=== PATIENT | male | born 1970 | race African-American/Black ===

== ENCOUNTER 2016-06-06 16:56 | Inpatient (IN) | payer MEDICARE, MEDICAID ==
[~2016-06-06] VITALS: Ht 182.9 cm; Wt 201.9 kg
[~2016-06-06 16:56] MED LIST: CARV25TA47 PO; CORLANOR PO; DOCU-138 PO; ENTRESTO PO; FURO40TA5 PO; HYDR-4134 PO; OMEP20CA10 PO; POTA20TA82 PO
[2016-06-06] MEDS ORDERED: ONDANSETRON 4MG ODT PO STA (18:38)
[2016-06-06] MEDS ORDERED: MORPHINE SULFATE 4 MG/ML CPJ (NOT FOR IM USE) IV STA (18:38)
[2016-06-06 19:09] LABS: DIFFERENTIAL COMMENT 0; EOSINOPHILS % 3.9 % (0.0-5.0); HEMATOCRIT. 36.7 % (42.0-52.0); HEMOGLOBIN. 11.4 g/dL (14.0-18.0); LYMPHOCYTES % 37.3 % (20.0-50.0); MEAN CORPUSCULAR HGB CONC 31.2 g/dL (31.0-37.0); MEAN CORPUSCULAR VOLUME 76.8 fL (80.0-94.0); MEAN PLATELET VOLUME 8.8 fl (7.4-10.4); MONOCYTES % 11.2 % (2.0-8.0); NEUTROPHILS % 46.6 % (40.0-76.0); PLATELET 143 x1000/uL (130-400); RED BLOOD CELL COUNT 4.78 mill/uL (4.7-6.1); RED CELL DISTRIBUTION WIDTH 18.5 % (11.6-14.6); WHITE BLOOD COUNT 4.9 x1000/uL (4.5-11.0)
[2016-06-06 19:14] LABS: PROTHROMBIN TIME 10.9 sec
[2016-06-06 19:24] LABS: ALANINE AMINOTRANSFERASE 19 IU/L (13-61); ALBUMIN 3.5 g/dL (3.4-5.0); ANION GAP 12; CALCIUM 8.8 mg/dL (8.5-10.1); CARBON DIOXIDE 29 mEq/L (21-32); CHLORIDE 105 mEq/L (98-107); INDEX HEMOLYSI 1 (1-3); INDEX ICTERIC 1 (1-4); INDEX LIPEMIC 1 (1-3); LIPASE 77 IU/L (73-393); NT PRO B-TYPE NATRIURETIC PEP 913 pg/mL (5-125); TROPONIN I 0.02 ng/mL (0.00-0.04); UREA NITROGEN BLOOD 16 mg/dL (7-21); eGFR > 60 mL/min (>60)
[2016-06-06 20:20] LABS: CLARITY URINE CLEAR (CLEAR); COLOR URINE YELLOW (YELLOW); GLUCOSE URINE NEGATIVE (NEGATIVE); KETONES URINE NEGATIVE (NEGATIVE); LEUKOCYTE ESTERASE URINE NEGATIVE (NEGATIVE); NITRITE URINE NEGATIVE (NEGATIVE); OCCULT BLOOD URINE NEGATIVE (NEGATIVE); PROTEIN URINE 2+ (NEGATIVE); SPECIFIC GRAVITY URINE 1.025 (1.005-1.030)
[2016-06-06] MEDS ORDERED: FUROSEMIDE 40MG/4ML VIAL IVP ONE (20:45)
[2016-06-06] MEDS ORDERED: ASPIRIN 81MG TABLET PO ONE (20:45)
[2016-06-06 20:55] LABS: BACTERIA URINE 1+; RBC URINE 0-2 /hpf (0-2); SQUAMOUS EPITHELIAL CELL URINE FEW /lpf (RARE/1+); WBC URINE 0-2 /hpf (0-2)
[2016-06-06] MEDS ORDERED: IPRATROPIUM/ALBUTEROL 0.5-3(2.5)MG/3ML NEB INH PRN (21:45)
[2016-06-06] MEDS ORDERED: KETOROLAC 30MG/ML VIAL IV ONE (21:45)
[2016-06-06] MEDS ORDERED: ONDANSETRON HCL 4MG/2ML VIAL IV PRN (21:45)
[2016-06-06] MEDS ORDERED: MAGNESIUM/ALUMINUM HYDROXIDE/SIMETHICONE 30ML UDC PO PRN (21:45)
[2016-06-06] MEDS ORDERED: ENOXAPARIN 40MG/0.4ML SYR SUBCUT SCH (21:45)
[2016-06-06] MEDS ORDERED: CLONIDINE 0.1MG TABLET PO PRN (21:45)
[2016-06-06] MEDS ORDERED: ZOLPIDEM TARTRATE 5MG TABLET PO PRN (22:00)
[2016-06-06 22:52] VITALS: BP 183/99
[2016-06-06] MEDS: MORPHINE SULFATE 2 MG/ML CPJ (NOT FOR IM USE) IV PRN (23:32)
[2016-06-06] MEDS ORDERED: DOCUSATE SODIUM 100MG CAPSULE PO PRN (23:45)
[2016-06-06 23:48] VITALS: BP 183/99
[2016-06-07] VITALS: BP 161/90
[2016-06-07 04:00] VITALS: BP 163/96
[2016-06-07] MEDS: MORPHINE SULFATE 2 MG/ML CPJ (NOT FOR IM USE) IV PRN ×5 (04:12→20:50)
[2016-06-07 06:02] LABS: BASOPHILS % 0.6 % (0.0-2.0); DIFFERENTIAL COMMENT 0; EOSINOPHILS % 4.2 % (0.0-5.0); HEMOGLOBIN. 11.3 g/dL (14.0-18.0); LYMPHOCYTES % 46.4 % (20.0-50.0); MEAN CORPUSCULAR HGB CONC 31.4 g/dL (31.0-37.0); MEAN CORPUSCULAR VOLUME 76.5 fL (80.0-94.0); MEAN PLATELET VOLUME 9.1 fl (7.4-10.4); MONOCYTES % 13.6 % (2.0-8.0); NEUTROPHILS % 35.2 % (40.0-76.0); PLATELET 143 x1000/uL (130-400); RED CELL DISTRIBUTION WIDTH 19.1 % (11.6-14.6); WHITE BLOOD COUNT 5.4 x1000/uL (4.5-11.0)
[2016-06-07 06:56] LABS: ANION GAP 12; CALCIUM 8.4 mg/dL (8.5-10.1); CARBON DIOXIDE 29 mEq/L (21-32); CHLORIDE 104 mEq/L (98-107); HDL CHOLESTEROL 41 mg/dL (40-59); INDEX HEMOLYSI 1 (1-3); INDEX ICTERIC 1 (1-4); INDEX LIPEMIC 1 (1-3); MAGNESIUM 1.9 mg/dL (1.8-2.4); TRIGLYCERIDE 88 mg/dL (0-150); UREA NITROGEN BLOOD 18 mg/dL (7-21); eGFR > 60 mL/min (>60)
[2016-06-07 06:58] LABS: LDL CHOLESTEROL 83 mg/dL (5-100)
[2016-06-07 08:00] VITALS: BP 160/105
[2016-06-07] MEDS: HYDRALAZINE HCL 25MG TABLET PO SCH ×2 (08:08→20:47)
[2016-06-07] MEDS: POTASSIUM CHLORIDE 20MEQ TABLET SR PO SCH ×2 (08:09→16:39)
[2016-06-07] MEDS: CARVEDILOL 25MG TABLET PO SCH ×2 (08:09→20:47)
[2016-06-07] MEDS: PANTOPRAZOLE SODIUM 40 MG/VIAL IV SCH (08:10)
[2016-06-07] MEDS: ENOXAPARIN 40MG/0.4ML SYR SUBCUT SCH ×2 (08:10→20:48)
[2016-06-07] MEDS: ENTRESTO PO SCH ×2 (08:11→16:40)
[2016-06-07] MEDS: CORLANOR 5 MG PO SCH ×2 (08:11→16:40)
[2016-06-07 12:00] VITALS: BP 134/86
[2016-06-07 16:00] VITALS: BP 122/84
[2016-06-07] MEDS: SIMETHICONE 80MG TABLET CHEW PO SCH ×2 (16:39→20:47)
[2016-06-07 20:00] VITALS: BP 157/89
[2016-06-08] VITALS: BP 165/98
[2016-06-08] MEDS: MORPHINE SULFATE 2 MG/ML CPJ (NOT FOR IM USE) IV PRN ×4 (01:21→13:36)
[2016-06-08 04:00] VITALS: BP 150/90
[2016-06-08 05:50] LABS: ANION GAP 12; CALCIUM 8.2 mg/dL (8.5-10.1); CARBON DIOXIDE 27 mEq/L (21-32); CHLORIDE 107 mEq/L (98-107); INDEX HEMOLYSI 3 (1-3); INDEX ICTERIC 1 (1-4); INDEX LIPEMIC 1 (1-3); UREA NITROGEN BLOOD 19 mg/dL (7-21); eGFR > 60 mL/min (>60)
[2016-06-08 05:51] LABS: BASOPHILS % 0.7 % (0.0-2.0); DIFFERENTIAL COMMENT 0; EOSINOPHILS % 5.3 % (0.0-5.0); HEMATOCRIT. 37.7 % (42.0-52.0); HEMOGLOBIN. 11.6 g/dL (14.0-18.0); MEAN CORPUSCULAR HEMOGLOBIN 24.2 pg (28.0-32.0); MEAN CORPUSCULAR HGB CONC 30.8 g/dL (31.0-37.0); MEAN CORPUSCULAR VOLUME 78.5 fL (80.0-94.0); MEAN PLATELET VOLUME 9.3 fl (7.4-10.4); MONOCYTES % 11.1 % (2.0-8.0); NEUTROPHILS % 38.9 % (40.0-76.0); PLATELET 125 x1000/uL (130-400); RED CELL DISTRIBUTION WIDTH 18.5 % (11.6-14.6); WHITE BLOOD COUNT 4.9 x1000/uL (4.5-11.0)
[2016-06-08] MEDS: SIMETHICONE 80MG TABLET CHEW PO SCH ×4 (07:08→21:38)
[2016-06-08 08:00] VITALS: BP 158/98
[2016-06-08] MEDS ORDERED: FUROSEMIDE 40MG/4ML VIAL IV SCH (09:00)
[2016-06-08] MEDS: CORLANOR 5 MG PO SCH ×2 (09:36→17:23)
[2016-06-08] MEDS: ENTRESTO PO SCH ×2 (09:37→17:24)
[2016-06-08] MEDS: PANTOPRAZOLE SODIUM 40 MG/VIAL IV SCH (09:37)
[2016-06-08] MEDS: ENOXAPARIN 40MG/0.4ML SYR SUBCUT SCH ×2 (09:37→20:38)
[2016-06-08] MEDS: HYDRALAZINE HCL 25MG TABLET PO SCH (09:38)
[2016-06-08] MEDS: POTASSIUM CHLORIDE 20MEQ TABLET SR PO SCH ×2 (09:39→17:23)
[2016-06-08] MEDS: CARVEDILOL 25MG TABLET PO SCH ×2 (09:39→20:37)
[2016-06-08] MEDS: DOCUSATE SODIUM 250MG CAPSULE PO SCH ×2 (09:56→17:23)
[2016-06-08 12:00] VITALS: BP 124/78
[2016-06-08] MEDS: AMLODIPINE 5MG TABLET PO SCH ×2 (13:35→20:36)
[2016-06-08 16:00] VITALS: BP 164/86
[2016-06-08] MEDS: FUROSEMIDE 40MG/4ML VIAL IV SCH (17:23)
[2016-06-08 20:00] VITALS: BP 150/87
[2016-06-08] MEDS: HYDRALAZINE HCL 50MG TABLET PO SCH (20:35)
[2016-06-08] MEDS: MORPHINE SULFATE 4 MG/ML CPJ (NOT FOR IM USE) IV PRN (21:38)
[2016-06-09] VITALS: BP 135/81
[2016-06-09] MEDS: MORPHINE SULFATE 4 MG/ML CPJ (NOT FOR IM USE) IV PRN ×3 (01:47→09:52)
[2016-06-09 04:00] VITALS: BP 151/87
[2016-06-09] MEDS ORDERED: PANTOPRAZOLE 40MG DR TABLET PO SCH (06:45)
[2016-06-09] MEDS: FUROSEMIDE 40MG/4ML VIAL IV SCH (06:47)
[2016-06-09] MEDS: SIMETHICONE 80MG TABLET CHEW PO SCH ×2 (06:48→12:59)
[2016-06-09 08:00] VITALS: BP 115/68
[2016-06-09 09:22] LABS: BASOPHILS % 0.9 % (0.0-2.0); DIFFERENTIAL COMMENT 0; EOSINOPHILS % 8.2 % (0.0-5.0); HEMATOCRIT. 39.8 % (42.0-52.0); HEMOGLOBIN. 12.3 g/dL (14.0-18.0); LYMPHOCYTES % 34.2 % (20.0-50.0); MEAN CORPUSCULAR HEMOGLOBIN 24.1 pg (28.0-32.0); MEAN CORPUSCULAR VOLUME 77.6 fL (80.0-94.0); MEAN PLATELET VOLUME 8.6 fl (7.4-10.4); MONOCYTES % 9.3 % (2.0-8.0); NEUTROPHILS % 47.4 % (40.0-76.0); PLATELET 144 x1000/uL (130-400); RED BLOOD CELL COUNT 5.13 mill/uL (4.7-6.1); RED CELL DISTRIBUTION WIDTH 19.2 % (11.6-14.6); WHITE BLOOD COUNT 4.7 x1000/uL (4.5-11.0)
[2016-06-09] MEDS: AMLODIPINE 5MG TABLET PO SCH (10:00)
[2016-06-09 10:01] LABS: ANION GAP 11; CALCIUM 8.7 mg/dL (8.5-10.1); CARBON DIOXIDE 30 mEq/L (21-32); CHLORIDE 103 mEq/L (98-107); INDEX HEMOLYSI 1 (1-3); INDEX ICTERIC 1 (1-4); INDEX LIPEMIC 1 (1-3); MAGNESIUM 1.8 mg/dL (1.8-2.4); UREA NITROGEN BLOOD 19 mg/dL (7-21); eGFR > 60 mL/min (>60)
[2016-06-09] MEDS: DOCUSATE SODIUM 250MG CAPSULE PO SCH (10:12)
[2016-06-09] MEDS: POTASSIUM CHLORIDE 20MEQ TABLET SR PO SCH (10:13)
[2016-06-09] MEDS: HYDRALAZINE HCL 50MG TABLET PO SCH (10:13)
[2016-06-09] MEDS: CARVEDILOL 25MG TABLET PO SCH (10:14)
[2016-06-09] MEDS: ENOXAPARIN 40MG/0.4ML SYR SUBCUT SCH (10:16)
[2016-06-09] MEDS: CORLANOR 5 MG PO SCH (10:17)
[2016-06-09] MEDS: ENTRESTO PO SCH (10:17)
[2016-06-09 12:00] VITALS: BP 152/89
[2016-06-09 15:13] VITALS: BP 152/89
== END 2016-06-09 15:45 | disposition home or self-care (01) | DRG 291 ==
LOC: ER 18:58 → 5WST 20:43
PROVIDERS: ADMIT Family Medicine Adult Medicine; ATTEND Family Medicine Adult Medicine
DX: I11.0 Hypertensive heart disease with heart failure (principal); J96.00 Acute respiratory failure, unspecified whether with hypoxia or hypercapnia; Z68.44 Body mass index [BMI] 60.0-69.9, adult; I50.23 Acute on chronic systolic (congestive) heart failure; I42.0 Dilated cardiomyopathy; D50.9 Iron deficiency anemia, unspecified; E66.9 Obesity, unspecified; G47.33 Obstructive sleep apnea (adult) (pediatric); K21.9 Gastro-esophageal reflux disease without esophagitis; K25.9 Gastric ulcer, unspecified as acute or chronic, without hemorrhage or perforation; K28.9 Gastrojejunal ulcer, unspecified as acute or chronic, without hemorrhage or perforation; K43.9 Ventral hernia without obstruction or gangrene; Z96.659 Presence of unspecified artificial knee joint; M48.02 Spinal stenosis, cervical region; K44.9 Diaphragmatic hernia without obstruction or gangrene; K57.30 Diverticulosis of large intestine without perforation or abscess without bleeding; K80.20 Calculus of gallbladder without cholecystitis without obstruction; Z82.49 Family history of ischemic heart disease and other diseases of the circulatory system; Z87.11 Personal history of peptic ulcer disease; Z95.810 Presence of automatic (implantable) cardiac defibrillator; Z98.84 Bariatric surgery status; Z91.013 Allergy to seafood; Z91.018 Allergy to other foods; Z88.0 Allergy status to penicillin; Z98.890 Other specified postprocedural states; Z88.8 Allergy status to other drugs, medicaments and biological substances
CPT/HCPCS: 36415; 71010; 74176; 80048; 80053; 80061; 81001; 83690; 83735; 83880; 84484; 85025; 85610; 93005; 96374; 99285; C9113; J1650; J1885; J1940; J2270; Q0162

== ENCOUNTER 2016-09-25 14:05 | Inpatient (IN) | payer MEDICARE, MEDICAID ==
[~2016-09-25] VITALS: Ht 188 cm; Wt 205.0 kg
[2016-09-25] MEDS ORDERED: HYDROCODONE/ACETAMINOPHEN 5/325MG TABLET PO PRN (15:30)
[2016-09-25] MEDS ORDERED: ACETAMINOPHEN 325MG TABLET PO PRN (15:30)
[2016-09-25] MEDS ORDERED: MORPHINE SULFATE 2 MG/ML CPJ (NOT FOR IM USE) IV PRN (15:30)
[2016-09-25] MEDS ORDERED: MAGNESIUM/ALUMINUM HYDROXIDE/SIMETHICONE 30ML UDC PO PRN (15:30)
[2016-09-25] MEDS ORDERED: DOCUSATE SODIUM 100MG CAPSULE PO PRN ×2 (15:30→21:45)
[2016-09-25] MEDS ORDERED: IPRATROPIUM/ALBUTEROL 0.5-3(2.5)MG/3ML NEB INH PRN (15:30)
[2016-09-25] MEDS ORDERED: ONDANSETRON HCL 4MG/2ML VIAL IV PRN (15:30)
[2016-09-25 17:17] LABS: CHLORIDE 108 mEq/L (98-107)
[2016-09-25 17:20] LABS: BASOPHILS % 0.6 % (0.0-2.0); EOSINOPHILS % 0.9 % (0.0-5.0); HEMATOCRIT. 35.2 % (42.0-52.0); HEMOGLOBIN. 11.1 g/dL (14.0-18.0); LYMPHOCYTES % 27.6 % (20.0-50.0); MEAN CORPUSCULAR VOLUME 75.9 fL (80.0-94.0); MEAN PLATELET VOLUME 9.2 fl (7.4-10.4); MONOCYTES % 10.3 % (2.0-8.0); NEUTROPHILS % 60.6 % (40.0-76.0); PLATELET 164 x1000/uL (130-400); RED BLOOD CELL COUNT 4.64 mill/uL (4.7-6.1); RED CELL DISTRIBUTION WIDTH 17.2 % (11.6-14.6)
[2016-09-25 17:23] LABS: CARBON DIOXIDE 27 mEq/L (21-32)
[2016-09-25 17:25] LABS: INR 1.1; PROTHROMBIN TIME 11.3 sec
[2016-09-25] MEDS: FUROSEMIDE 40MG/4ML VIAL IV SCH (17:33)
[2016-09-25] MEDS ORDERED: MORPHINE SULFATE 4 MG/ML CPJ (NOT FOR IM USE) IV PRN (17:39)
[2016-09-25] MEDS: MORPHINE SULFATE 4 MG/ML CPJ (NOT FOR IM USE) IV PRN ×2 (19:21→22:36)
[2016-09-25] MEDS ORDERED: ZOLPIDEM TARTRATE 5MG TABLET PO PRN (21:00)
[2016-09-25] MEDS: HYDRALAZINE HCL 25MG TABLET PO SCH (22:40)
[2016-09-25] MEDS: CARVEDILOL 25MG TABLET PO SCH (22:41)
[2016-09-25] MEDS: ENOXAPARIN 40MG/0.4ML SYR SUBCUT SCH (22:41)
[2016-09-26] MEDS: MORPHINE SULFATE 4 MG/ML CPJ (NOT FOR IM USE) IV PRN ×6 (01:58→20:48)
[2016-09-26] MEDS: OMEPRAZOLE 20MG CAPSULE EXTENDED RELEASE PO SCH (06:07)
[2016-09-26 06:14] LABS: BASOPHILS % 0.6 % (0.0-2.0); EOSINOPHILS % 1.6 % (0.0-5.0); HEMATOCRIT. 36.1 % (42.0-52.0); HEMOGLOBIN. 11.4 g/dL (14.0-18.0); LYMPHOCYTES % 40.7 % (20.0-50.0); MEAN CORPUSCULAR HEMOGLOBIN 24.1 pg (28.0-32.0); MEAN CORPUSCULAR VOLUME 76.4 fL (80.0-94.0); MONOCYTES % 11.4 % (2.0-8.0); NEUTROPHILS % 45.7 % (40.0-76.0); RED BLOOD CELL COUNT 4.73 mill/uL (4.7-6.1); RED CELL DISTRIBUTION WIDTH 17.7 % (11.6-14.6)
[2016-09-26 07:52] LABS: CARBON DIOXIDE 28 mEq/L (21-32); CHLORIDE 105 mEq/L (98-107)
[2016-09-26] MEDS: POTASSIUM CHLORIDE 20MEQ TABLET SR PO SCH ×2 (09:45→17:34)
[2016-09-26] MEDS: CARVEDILOL 25MG TABLET PO SCH ×2 (09:46→20:46)
[2016-09-26] MEDS: FUROSEMIDE 40MG/4ML VIAL IV SCH ×2 (09:46→17:34)
[2016-09-26] MEDS: HYDRALAZINE HCL 25MG TABLET PO SCH ×3 (09:46→20:47)
[2016-09-26] MEDS: ENOXAPARIN 40MG/0.4ML SYR SUBCUT SCH ×2 (09:47→20:47)
[2016-09-26 13:24] LABS: PLATELET 131 x1000/uL (130-400)
[2016-09-27] MEDS: MORPHINE SULFATE 4 MG/ML CPJ (NOT FOR IM USE) IV PRN ×7 (00:14→21:14)
[2016-09-27] MEDS: OMEPRAZOLE 20MG CAPSULE EXTENDED RELEASE PO SCH (06:28)
[2016-09-27] MEDS: HYDRALAZINE HCL 25MG TABLET PO SCH (06:28)
[2016-09-27 08:05] LABS: CARBON DIOXIDE 33 mEq/L (21-32); CHLORIDE 104 mEq/L (98-107)
[2016-09-27 08:11] LABS: BASOPHILS % 0.6 % (0.0-2.0); EOSINOPHILS % 2.2 % (0.0-5.0); HEMATOCRIT. 36.4 % (42.0-52.0); HEMOGLOBIN. 11.4 g/dL (14.0-18.0); LYMPHOCYTES % 37.8 % (20.0-50.0); MEAN CORPUSCULAR HEMOGLOBIN 24.1 pg (28.0-32.0); MEAN CORPUSCULAR VOLUME 76.9 fL (80.0-94.0); MEAN PLATELET VOLUME 9.1 fl (7.4-10.4); MONOCYTES % 11.2 % (2.0-8.0); NEUTROPHILS % 48.2 % (40.0-76.0); PLATELET 79 x1000/uL (130-400); RED BLOOD CELL COUNT 4.73 mill/uL (4.7-6.1); RED CELL DISTRIBUTION WIDTH 17.5 % (11.6-14.6)
[2016-09-27] MEDS: CARVEDILOL 25MG TABLET PO SCH ×2 (09:33→21:06)
[2016-09-27] MEDS: FUROSEMIDE 40MG/4ML VIAL IV SCH ×2 (09:33→17:41)
[2016-09-27] MEDS: POTASSIUM CHLORIDE 20MEQ TABLET SR PO SCH ×2 (09:34→17:41)
[2016-09-27] MEDS: ENOXAPARIN 40MG/0.4ML SYR SUBCUT SCH ×2 (09:40→20:38)
[2016-09-27] MEDS: ENTRESTO 24MG/26MG PO SCH ×2 (11:34→21:07)
[2016-09-27] MEDS: CORLANOR 5 MG PO SCH ×2 (11:34→21:07)
[2016-09-27] MEDS: HYDRALAZINE HCL 50MG TABLET PO SCH ×2 (14:18→21:06)
[2016-09-27] MEDS: IPRATROPIUM/ALBUTEROL 0.5-3(2.5)MG/3ML NEB HHN SCH (21:37)
[2016-09-28] MEDS: MORPHINE SULFATE 4 MG/ML CPJ (NOT FOR IM USE) IV PRN ×7 (00:17→21:10)
[2016-09-28] MEDS: IPRATROPIUM/ALBUTEROL 0.5-3(2.5)MG/3ML NEB HHN SCH ×4 (02:09→20:07)
[2016-09-28] MEDS: HYDRALAZINE HCL 50MG TABLET PO SCH ×3 (06:11→21:17)
[2016-09-28] MEDS: OMEPRAZOLE 20MG CAPSULE EXTENDED RELEASE PO SCH (06:11)
[2016-09-28 07:08] LABS: BASOPHILS % 0.7 % (0.0-2.0); EOSINOPHILS % 2.9 % (0.0-5.0); HEMOGLOBIN. 11.8 g/dL (14.0-18.0); LYMPHOCYTES % 36.4 % (20.0-50.0); MEAN CORPUSCULAR HEMOGLOBIN 24.3 pg (28.0-32.0); MEAN CORPUSCULAR VOLUME 76.2 fL (80.0-94.0); MONOCYTES % 14.2 % (2.0-8.0); NEUTROPHILS % 45.8 % (40.0-76.0); PLATELET 167 x1000/uL (130-400); RED BLOOD CELL COUNT 4.86 mill/uL (4.7-6.1); RED CELL DISTRIBUTION WIDTH 17.1 % (11.6-14.6)
[2016-09-28 07:32] LABS: CARBON DIOXIDE 30 mEq/L (21-32); CHLORIDE 104 mEq/L (98-107)
[2016-09-28] MEDS: POTASSIUM CHLORIDE 20MEQ TABLET SR PO SCH ×2 (08:28→17:29)
[2016-09-28] MEDS: FUROSEMIDE 40MG/4ML VIAL IV SCH ×2 (08:28→17:29)
[2016-09-28] MEDS: ENTRESTO 24MG/26MG PO SCH ×2 (08:29→21:18)
[2016-09-28] MEDS: CORLANOR 5 MG PO SCH ×2 (08:29→21:18)
[2016-09-28] MEDS: CARVEDILOL 25MG TABLET PO SCH ×2 (08:29→21:17)
[2016-09-28] MEDS: ENOXAPARIN 40MG/0.4ML SYR SUBCUT SCH ×2 (08:40→21:00)
[2016-09-29] MEDS: MORPHINE SULFATE 4 MG/ML CPJ (NOT FOR IM USE) IV PRN ×5 (01:19→15:31)
[2016-09-29] MEDS: IPRATROPIUM/ALBUTEROL 0.5-3(2.5)MG/3ML NEB HHN SCH ×3 (01:43→14:43)
[2016-09-29 04:39] LABS: CARBON DIOXIDE 31 mEq/L (21-32); CHLORIDE 102 mEq/L (98-107)
[2016-09-29 04:44] LABS: BASOPHILS % 0.6 % (0.0-2.0); EOSINOPHILS % 3.2 % (0.0-5.0); HEMATOCRIT. 37.8 % (42.0-52.0); LYMPHOCYTES % 36.7 % (20.0-50.0); MEAN CORPUSCULAR VOLUME 75.7 fL (80.0-94.0); MEAN PLATELET VOLUME 9.2 fl (7.4-10.4); MONOCYTES % 12.1 % (2.0-8.0); NEUTROPHILS % 47.4 % (40.0-76.0); PLATELET 149 x1000/uL (130-400); RED BLOOD CELL COUNT 4.99 mill/uL (4.7-6.1)
[2016-09-29] MEDS: HYDRALAZINE HCL 50MG TABLET PO SCH ×2 (05:50→15:26)
[2016-09-29] MEDS: OMEPRAZOLE 20MG CAPSULE EXTENDED RELEASE PO SCH (05:50)
[2016-09-29] MEDS: FUROSEMIDE 40MG/4ML VIAL IV SCH ×2 (08:53→17:00)
[2016-09-29] MEDS: CARVEDILOL 25MG TABLET PO SCH (08:54)
[2016-09-29] MEDS: POTASSIUM CHLORIDE 20MEQ TABLET SR PO SCH (08:54)
[2016-09-29] MEDS: ENTRESTO 24MG/26MG PO SCH (08:55)
[2016-09-29] MEDS: CORLANOR 5 MG PO SCH (08:55)
[2016-09-29] MEDS: ENOXAPARIN 40MG/0.4ML SYR SUBCUT SCH (09:00)
[2016-09-29] MEDS ORDERED: MAGNESIUM 1 G PREMIX 100 ML IV NR (12:00)
[2016-09-29 15:54] VITALS: BP 136/78
[2017-01-17] MEDS ORDERED: WARF10TA21 PO (18:05)
== END 2016-09-29 17:52 | disposition home or self-care (01) | DRG 292 ==
LOC: ER 15:00 → 5WST 15:05 → ER 16:10
PROVIDERS: ADMIT Specialist; ATTEND Specialist
PROC: 02HV33Z Insertion of Infusion Device into Superior Vena Cava, Percutaneous Approach (ICD-10-PCS; principal; 2016-09-26)
PROC: B548ZZA Ultrasonography of Superior Vena Cava, Guidance (ICD-10-PCS; 2016-09-26)
DX: I11.0 Hypertensive heart disease with heart failure (principal); Z68.43 Body mass index [BMI] 50.0-59.9, adult; I50.23 Acute on chronic systolic (congestive) heart failure; I42.0 Dilated cardiomyopathy; E66.9 Obesity, unspecified; G47.33 Obstructive sleep apnea (adult) (pediatric); Z96.659 Presence of unspecified artificial knee joint; Z82.49 Family history of ischemic heart disease and other diseases of the circulatory system; Z95.810 Presence of automatic (implantable) cardiac defibrillator; Z90.49 Acquired absence of other specified parts of digestive tract; Z88.8 Allergy status to other drugs, medicaments and biological substances; Z88.0 Allergy status to penicillin; Z91.013 Allergy to seafood; Z79.899 Other long term (current) drug therapy
CPT/HCPCS: 36415; 36569; 71010; 76937; 80048; 83735; 85025; 85610; 93005; 93970; 94640; 94664; 96372; 96374; 96375; 96376; 97162; 99285; C1725; J1650; J1940; J2270; J3475; J7050; J7620

== ENCOUNTER 2018-05-20 14:16 | Inpatient (IN) | payer MEDICARE, MEDICAID ==
[~2018-05-20] VITALS: Ht 190.5 cm; Wt 192.8 kg
[~2018-05-20 14:16] MED LIST changes: -CORLANOR PO; -ENTRESTO PO; +IVAB5TAB PO; +RIVA10TA PO; +SACU1TAB4 PO
[2018-05-20] MEDS ORDERED: NITROGLYCERIN 0.4MG TABLET SL SL ONE (14:45)
[2018-05-20] MEDS ORDERED: ASPIRIN 325MG EC TABLET PO ONE (14:45)
[2018-05-20] MEDS ORDERED: FUROSEMIDE 40MG/4ML VIAL IVP ONE (15:15)
[2018-05-20 15:17] LABS: CHLORIDE 109 mEq/L (98-107)
[2018-05-20 15:19] LABS: BASOPHILS % 1.1 % (0.0-2.0); HEMATOCRIT. 37.4 % (42.0-52.0); HEMOGLOBIN. 12.5 g/dL (14.0-18.0); LYMPHOCYTES % 34.7 % (20.0-50.0); MEAN CORPUSCULAR HEMOGLOBIN 28.1 pg (28.0-32.0); MEAN CORPUSCULAR VOLUME 84.1 fL (80.0-94.0); MEAN PLATELET VOLUME 8.6 fl (7.4-10.4); MONOCYTES % 11.6 % (2.0-8.0); NEUTROPHILS % 51.6 % (40.0-76.0); PLATELET 120 x1000/uL (130-400); RED BLOOD CELL COUNT 4.44 mill/uL (4.7-6.1); RED CELL DISTRIBUTION WIDTH 23.1 % (11.6-14.6)
[2018-05-20 15:32] LABS: INR 1.9; PARTIAL THROMBOPLASTIN TIME 36.2 sec (23.4-31.0); PROTHROMBIN TIME 18.5 sec (9.1-11.1)
[2018-05-20 16:11] LABS: PLATELET ESTIMATE DECREASED
[2018-05-20] MEDS ORDERED: MORPHINE SULFATE 4 MG/ML CPJ (NOT FOR IM USE) IV ONE (16:45)
[2018-05-20] MEDS ORDERED: MORPHINE SULFATE 4 MG/ML CPJ (NOT FOR IM USE) IV NR (21:00)
[2018-05-21] MEDS ORDERED: HYDROCODONE/ACETAMINOPHEN 10/325MG TABLET PO PRN
[2018-05-21] MEDS ORDERED: ACETAMINOPHEN 325MG TABLET PO PRN
[2018-05-21] MEDS ORDERED: DIPHENHYDRAMINE 50MG/ML VIAL IV PRN
[2018-05-21] MEDS ORDERED: LORAZEPAM 0.5MG TABLET PO PRN
[2018-05-21] MEDS ORDERED: MAGNESIUM/ALUMINUM HYDROXIDE/SIMETHICONE 30ML UDC PO PRN
[2018-05-21] MEDS ORDERED: IPRATROPIUM/ALBUTEROL 0.5-3(2.5)MG/3ML NEB INH PRN
[2018-05-21] MEDS ORDERED: HYDROCODONE/ACETAMINOPHEN 5/325MG TABLET PO PRN
[2018-05-21] MEDS ORDERED: GUAIFENESIN 200MG/10ML SUGAR FREE UDC PO PRN
[2018-05-21] MEDS ORDERED: HYDROCODONE/APAP 7.5/325MG 1 TAB TABLET PO PRN
[2018-05-21] MEDS ORDERED: DOCUSATE SODIUM 100MG CAPSULE PO PRN
[2018-05-21] MEDS ORDERED: ONDANSETRON HCL 4MG/2ML INJ IV PRN
[2018-05-21] MEDS ORDERED: CLONIDINE 0.1MG TABLET PO PRN
[2018-05-21] MEDS ORDERED: MORPHINE SULFATE 4 MG/ML CPJ (NOT FOR IM USE) IV SCH (02:30)
[2018-05-21] MEDS ORDERED: MORPHINE SULFATE 4 MG/ML CPJ (NOT FOR IM USE) IV PRN (02:30)
[2018-05-21] MEDS: MORPHINE SULFATE 4 MG/ML CPJ (NOT FOR IM USE) IV PRN ×4 (02:32→20:26)
[2018-05-21 04:14] LABS: BASOPHILS % 1.1 % (0.0-2.0); EOSINOPHILS % 1.5 % (0.0-5.0); HEMATOCRIT. 38.1 % (42.0-52.0); HEMOGLOBIN. 12.4 g/dL (14.0-18.0); LYMPHOCYTES % 48.6 % (20.0-50.0); MEAN CORPUSCULAR HEMOGLOBIN 27.6 pg (28.0-32.0); MEAN CORPUSCULAR VOLUME 84.8 fL (80.0-94.0); MEAN PLATELET VOLUME 8.8 fl (7.4-10.4); MONOCYTES % 10.1 % (2.0-8.0); NEUTROPHILS % 38.7 % (40.0-76.0); PLATELET 112 x1000/uL (130-400); RED CELL DISTRIBUTION WIDTH 23.2 % (11.6-14.6)
[2018-05-21 04:21] LABS: CHLORIDE 108 mEq/L (98-107)
[2018-05-21 04:28] LABS: PHOSPHORUS 3.7 mg/dL (2.5-4.9)
[2018-05-21 04:29] LABS: LDL CHOLESTEROL 63 mg/dL (5-100)
[2018-05-21 04:31] LABS: HDL CHOLESTEROL 38 mg/dL (40-59); T4 FREE 1.32 ng/dL (0.76-1.46)
[2018-05-21 04:45] VITALS: BP 161/81
[2018-05-21 05:00] VITALS: BP 161/81
[2018-05-21] MEDS ORDERED: WARF10TA21 PO (05:52)
[2018-05-21 07:14] LABS: CLARITY URINE CLEAR (CLEAR); COLOR URINE YELLOW (YELLOW); KETONES URINE NEGATIVE (NEGATIVE); LEUKOCYTE ESTERASE URINE NEGATIVE (NEGATIVE); NITRITE URINE NEGATIVE (NEGATIVE); OCCULT BLOOD URINE NEGATIVE (NEGATIVE); PROTEIN URINE NEGATIVE (NEGATIVE); SPECIFIC GRAVITY URINE 1.017 (1.005-1.030); UROBILINOGEN URINE 0.2 E.U./dL (0.2-1.0)
[2018-05-21 07:53] LABS: METHADONE URINE SCREEN NEGATIVE (NEGATIVE); OPIATES URINE SCREEN PRESUMTIVE POSITIVE (NEGATIVE)
[2018-05-21 07:54] LABS: *AMPHETAMINES SCREEN URINE NEGATIVE (NEGATIVE); *BARBITURATES SCREEN URINE NEGATIVE (NEGATIVE); *BENZODIAZEPINES SCREEN URINE NEGATIVE (NEGATIVE); *COCAINE SCREEN URINE NEGATIVE (NEGATIVE); CANNABINOID URINE SCREEN NEGATIVE (NEGATIVE); PHENCYCLIDINE URINE SCREEN NEGATIVE (NEGATIVE)
[2018-05-21 08:00] VITALS: BP 146/89
[2018-05-21 11:23] LABS: PROTHROMBIN TIME 20.1 sec (9.1-11.1)
[2018-05-21 12:00] VITALS: BP 150/70
[2018-05-21] MEDS ORDERED: SODIUM BICARBONATE 4% (2.4MEQ) 5ML VIAL IV ONE (14:00)
[2018-05-21] MEDS ORDERED: LIDOCAINE HCL 1% 20ML VIAL (Pyxis) INJ ONE (14:00)
[2018-05-21] MEDS: FUROSEMIDE 40MG/4ML VIAL IVP SCH ×2 (15:48→17:38)
[2018-05-21 16:00] VITALS: BP 132/82
[2018-05-21] MEDS ORDERED: WARFARIN SODIUM 10MG TABLET PO NR (18:00)
[2018-05-21] MEDS ORDERED: WARFARIN SODIUM 10MG TABLET PO SCH (18:00)
[2018-05-21 20:00] VITALS: BP 155/84
[2018-05-21] MEDS: CARVEDILOL 25MG TABLET PO SCH (20:35)
[2018-05-21] MEDS ORDERED: MAGNESIUM 1 G PREMIX 100 ML IV NR (21:30)
[2018-05-22] VITALS: BP 153/81
[2018-05-22] MEDS: MORPHINE SULFATE 4 MG/ML CPJ (NOT FOR IM USE) IV PRN ×5 (03:43→23:07)
[2018-05-22 04:00] VITALS: BP 122/78
[2018-05-22 07:29] LABS: INR 2.2; PROTHROMBIN TIME 22.3 sec (9.1-11.1)
[2018-05-22 07:45] LABS: BASOPHILS % 0.4 % (0.0-2.0); EOSINOPHILS % 1.5 % (0.0-5.0); HEMATOCRIT. 38.3 % (42.0-52.0); HEMOGLOBIN. 12.5 g/dL (14.0-18.0); LYMPHOCYTES % 39.2 % (20.0-50.0); MEAN CORPUSCULAR HEMOGLOBIN 27.7 pg (28.0-32.0); MEAN CORPUSCULAR VOLUME 84.8 fL (80.0-94.0); MEAN PLATELET VOLUME 8.9 fl (7.4-10.4); MONOCYTES % 11.7 % (2.0-8.0); NEUTROPHILS % 47.2 % (40.0-76.0); PLATELET 118 x1000/uL (130-400); RED BLOOD CELL COUNT 4.52 mill/uL (4.7-6.1); RED CELL DISTRIBUTION WIDTH 23.1 % (11.6-14.6)
[2018-05-22 08:00] VITALS: BP 154/93
[2018-05-22 08:00] LABS: CHLORIDE 107 mEq/L (98-107)
[2018-05-22] MEDS: FUROSEMIDE 40MG/4ML VIAL IVP SCH ×2 (09:04→18:26)
[2018-05-22] MEDS: CARVEDILOL 25MG TABLET PO SCH ×2 (09:06→20:30)
[2018-05-22 12:00] VITALS: BP 149/87
[2018-05-22] MEDS: ENTRESTO XX SCH ×2 (13:37→18:26)
[2018-05-22] MEDS: ENOXAPARIN 150MG/ML SYR SUBCUT SCH (13:38)
[2018-05-22 16:00] VITALS: BP 156/99
[2018-05-22] MEDS: BACITRACIN 15GM TUBE TOP SCH (16:35)
[2018-05-22] MEDS ORDERED: WARFARIN SODIUM 10MG TABLET PO NR (18:00)
[2018-05-22 20:00] VITALS: BP 150/83
[2018-05-23] VITALS: BP 139/92
[2018-05-23] MEDS: ENOXAPARIN 150MG/ML SYR SUBCUT SCH ×2 (00:54→13:28)
[2018-05-23 04:00] VITALS: BP 136/91
[2018-05-23] MEDS: MORPHINE SULFATE 4 MG/ML CPJ (NOT FOR IM USE) IV PRN ×5 (04:17→21:56)
[2018-05-23 08:00] VITALS: BP 142/89
[2018-05-23 09:04] LABS: BASOPHILS % 0.6 % (0.0-2.0); EOSINOPHILS % 1.7 % (0.0-5.0); HEMATOCRIT. 40.8 % (42.0-52.0); HEMOGLOBIN. 13.6 g/dL (14.0-18.0); LYMPHOCYTES % 46.8 % (20.0-50.0); MEAN CORPUSCULAR HEMOGLOBIN 28.2 pg (28.0-32.0); MEAN CORPUSCULAR VOLUME 84.5 fL (80.0-94.0); MEAN PLATELET VOLUME 8.5 fl (7.4-10.4); MONOCYTES % 11.2 % (2.0-8.0); NEUTROPHILS % 39.7 % (40.0-76.0); PLATELET 97 x1000/uL (130-400); RED BLOOD CELL COUNT 4.83 mill/uL (4.7-6.1); RED CELL DISTRIBUTION WIDTH 22.7 % (11.6-14.6)
[2018-05-23 09:10] LABS: INR 2.5; PROTHROMBIN TIME 24.5 sec (9.1-11.1)
[2018-05-23 09:12] LABS: CHLORIDE 103 mEq/L (98-107)
[2018-05-23] MEDS: CARVEDILOL 25MG TABLET PO SCH ×2 (09:14→21:56)
[2018-05-23] MEDS: FUROSEMIDE 40MG/4ML VIAL IVP SCH ×2 (09:14→17:45)
[2018-05-23] MEDS: ENTRESTO XX SCH ×2 (09:15→17:46)
[2018-05-23] MEDS: BACITRACIN 15GM TUBE TOP SCH (09:16)
[2018-05-23 12:00] VITALS: BP 143/82
[2018-05-23] MEDS ORDERED: MAGNESIUM 1 G PREMIX 100 ML IV SCH (14:00)
[2018-05-23 16:00] VITALS: BP 134/82
[2018-05-23] MEDS ORDERED: CARV25TA47 MT (16:13)
[2018-05-23] MEDS ORDERED: WARFARIN SODIUM 10MG TABLET PO NR (18:00)
[2018-05-23 20:00] VITALS: BP 136/88
[2018-05-24] MEDS: ENOXAPARIN 150MG/ML SYR SUBCUT SCH ×3 (00:46→23:17)
[2018-05-24 04:00] VITALS: BP 135/85
[2018-05-24] MEDS: MORPHINE SULFATE 4 MG/ML CPJ (NOT FOR IM USE) IV PRN ×4 (04:18→21:06)
[2018-05-24 06:48] LABS: BASOPHILS % 0.6 % (0.0-2.0); EOSINOPHILS % 2.2 % (0.0-5.0); HEMATOCRIT. 41.6 % (42.0-52.0); HEMOGLOBIN. 13.7 g/dL (14.0-18.0); LYMPHOCYTES % 41.8 % (20.0-50.0); MEAN CORPUSCULAR HEMOGLOBIN 27.8 pg (28.0-32.0); MEAN CORPUSCULAR VOLUME 84.6 fL (80.0-94.0); MEAN PLATELET VOLUME 8.8 fl (7.4-10.4); MONOCYTES % 12.9 % (2.0-8.0); NEUTROPHILS % 42.5 % (40.0-76.0); PLATELET 136 x1000/uL (130-400); RED BLOOD CELL COUNT 4.92 mill/uL (4.7-6.1); RED CELL DISTRIBUTION WIDTH 22.8 % (11.6-14.6)
[2018-05-24 06:50] LABS: INR 2.3; PROTHROMBIN TIME 22.6 sec (9.1-11.1)
[2018-05-24 07:06] LABS: CHLORIDE 104 mEq/L (98-107)
[2018-05-24 08:00] VITALS: BP 132/93
[2018-05-24] MEDS: MAGNESIUM OXIDE 400MG TABLET PO SCH (08:51)
[2018-05-24] MEDS: CARVEDILOL 25MG TABLET PO SCH ×2 (08:51→20:58)
[2018-05-24] MEDS: ENTRESTO XX SCH ×2 (08:52→18:01)
[2018-05-24] MEDS: FUROSEMIDE 40MG/4ML VIAL IVP SCH ×2 (08:52→17:59)
[2018-05-24] MEDS: BACITRACIN 15GM TUBE TOP SCH (08:52)
[2018-05-24 12:00] VITALS: BP 150/69
[2018-05-24 16:00] VITALS: BP 118/75
[2018-05-24] MEDS ORDERED: WARFARIN SODIUM 10MG TABLET PO SCH (18:00)
[2018-05-24] MEDS ORDERED: WARFARIN SODIUM 1MG TABLET PO NR (18:00)
[2018-05-24 20:00] VITALS: BP 127/82
[2018-05-24 23:05] VITALS: BP 129/70
[2018-05-25] MEDS: MORPHINE SULFATE 4 MG/ML CPJ (NOT FOR IM USE) IV PRN ×5 (01:33→20:40)
[2018-05-25 04:00] VITALS: BP 110/70
[2018-05-25 07:19] LABS: BASOPHILS % 0.4 % (0.0-2.0); EOSINOPHILS % 1.9 % (0.0-5.0); HEMATOCRIT. 40.4 % (42.0-52.0); HEMOGLOBIN. 13.3 g/dL (14.0-18.0); LYMPHOCYTES % 49.6 % (20.0-50.0); MEAN CORPUSCULAR VOLUME 84.9 fL (80.0-94.0); MEAN PLATELET VOLUME 8.7 fl (7.4-10.4); MONOCYTES % 13.3 % (2.0-8.0); NEUTROPHILS % 34.8 % (40.0-76.0); PLATELET 140 x1000/uL (130-400); RED BLOOD CELL COUNT 4.76 mill/uL (4.7-6.1); RED CELL DISTRIBUTION WIDTH 22.9 % (11.6-14.6)
[2018-05-25 07:25] LABS: INR 2.3
[2018-05-25 07:58] LABS: CHLORIDE 105 mEq/L (98-107)
[2018-05-25 08:00] VITALS: BP 136/93
[2018-05-25] MEDS: FUROSEMIDE 40MG/4ML VIAL IVP SCH ×2 (08:47→16:57)
[2018-05-25] MEDS: MAGNESIUM OXIDE 400MG TABLET PO SCH (08:47)
[2018-05-25] MEDS: ENTRESTO XX SCH ×2 (08:47→16:57)
[2018-05-25] MEDS: CARVEDILOL 25MG TABLET PO SCH ×2 (08:47→22:03)
[2018-05-25] MEDS: BACITRACIN 15GM TUBE TOP SCH (08:48)
[2018-05-25 12:00] VITALS: BP_SYST 113; BP_SYST 120; BP_DIAS 65; BP_DIAS 70
[2018-05-25] MEDS ORDERED: WARFARIN SODIUM 2.5MG TABLET PO NR (18:00)
[2018-05-25] MEDS ORDERED: WARFARIN SODIUM 10MG TABLET PO NR (18:00)
[2018-05-25 20:00] VITALS: BP 122/84
[2018-05-26] VITALS: BP 103/62
[2018-05-26] MEDS ORDERED: MORPHINE SULFATE 4 MG/ML CPJ (NOT FOR IM USE) IV PRN (03:30)
[2018-05-26 04:00] VITALS: BP 109/75
[2018-05-26 06:33] LABS: BASOPHILS % 0.6 % (0.0-2.0); EOSINOPHILS % 2.3 % (0.0-5.0); HEMATOCRIT. 40.2 % (42.0-52.0); HEMOGLOBIN. 13.5 g/dL (14.0-18.0); LYMPHOCYTES % 42.5 % (20.0-50.0); MEAN CORPUSCULAR HEMOGLOBIN 28.5 pg (28.0-32.0); MEAN CORPUSCULAR VOLUME 85.1 fL (80.0-94.0); MEAN PLATELET VOLUME 8.7 fl (7.4-10.4); NEUTROPHILS % 42.6 % (40.0-76.0); PLATELET 135 x1000/uL (130-400); RED BLOOD CELL COUNT 4.72 mill/uL (4.7-6.1); RED CELL DISTRIBUTION WIDTH 22.6 % (11.6-14.6)
[2018-05-26 06:43] LABS: INR 2.4; PROTHROMBIN TIME 23.9 sec (9.1-11.1)
[2018-05-26 07:24] LABS: CHLORIDE 104 mEq/L (98-107)
[2018-05-26 08:00] VITALS: BP 132/77
[2018-05-26] MEDS: MAGNESIUM OXIDE 400MG TABLET PO SCH (09:41)
[2018-05-26] MEDS: BACITRACIN 15GM TUBE TOP SCH (09:42)
[2018-05-26] MEDS: ENTRESTO XX SCH ×2 (09:42→17:43)
[2018-05-26] MEDS: CARVEDILOL 25MG TABLET PO SCH ×2 (09:42→19:47)
[2018-05-26] MEDS: FUROSEMIDE 40MG/4ML VIAL IVP SCH ×2 (09:42→17:44)
[2018-05-26] MEDS: MORPHINE SULFATE 4 MG/ML CPJ (NOT FOR IM USE) IV PRN ×3 (10:53→19:48)
[2018-05-26 12:00] VITALS: BP 156/75
[2018-05-26 16:00] VITALS: BP 111/63
[2018-05-26] MEDS ORDERED: WARFARIN SODIUM 7.5MG TABLET PO SCH (18:00)
[2018-05-26 20:00] VITALS: BP 135/81
[2018-05-27] VITALS: BP 118/86
[2018-05-27] MEDS: MORPHINE SULFATE 4 MG/ML CPJ (NOT FOR IM USE) IV PRN ×3 (00:08→10:21)
[2018-05-27 04:00] VITALS: BP 135/72
[2018-05-27 06:39] LABS: INR 2.6
[2018-05-27 06:54] LABS: BASOPHILS % 0.4 % (0.0-2.0); EOSINOPHILS % 1.8 % (0.0-5.0); HEMATOCRIT. 41.9 % (42.0-52.0); HEMOGLOBIN. 13.8 g/dL (14.0-18.0); LYMPHOCYTES % 44.8 % (20.0-50.0); MEAN CORPUSCULAR HEMOGLOBIN 28.1 pg (28.0-32.0); MEAN CORPUSCULAR VOLUME 85.5 fL (80.0-94.0); MEAN PLATELET VOLUME 9.1 fl (7.4-10.4); MONOCYTES % 12.2 % (2.0-8.0); NEUTROPHILS % 40.8 % (40.0-76.0); PLATELET 139 x1000/uL (130-400); RED CELL DISTRIBUTION WIDTH 22.5 % (11.6-14.6)
[2018-05-27 07:04] LABS: CHLORIDE 104 mEq/L (98-107)
[2018-05-27 08:00] VITALS: BP 126/72
[2018-05-27 08:14] LABS: PLATELET ESTIMATE NORMAL
[2018-05-27] MEDS: FUROSEMIDE 40MG/4ML VIAL IVP SCH (09:16)
[2018-05-27] MEDS: CARVEDILOL 25MG TABLET PO SCH (09:17)
[2018-05-27] MEDS: MAGNESIUM OXIDE 400MG TABLET PO SCH (09:17)
[2018-05-27] MEDS: ENTRESTO XX SCH (09:18)
[2018-05-27 12:00] VITALS: BP 135/70
[2018-05-27 13:49] VITALS: BP 126/72
[2018-05-27] MEDS ORDERED: WARFARIN SODIUM 7.5MG TABLET PO NR (18:00)
== END 2018-05-27 16:59 | disposition home or self-care (01) | DRG 292 ==
LOC: ER 14:16 → 7WST 15:32 → EDBEDREQ 15:44 → ENRESERV 05-21 02:41 → 5WST 05-23 05:28
PROVIDERS: ADMIT Family Medicine Adult Medicine; ATTEND Family Medicine Adult Medicine
PROC: 02HV33Z Insertion of Infusion Device into Superior Vena Cava, Percutaneous Approach (ICD-10-PCS; principal; 2018-05-21)
PROC: B548ZZA Ultrasonography of Superior Vena Cava, Guidance (ICD-10-PCS; 2018-05-21)
DX: I11.0 Hypertensive heart disease with heart failure (principal); Z68.43 Body mass index [BMI] 50.0-59.9, adult; R07.89 Other chest pain; I42.0 Dilated cardiomyopathy; D50.9 Iron deficiency anemia, unspecified; E03.9 Hypothyroidism, unspecified; E83.42 Hypomagnesemia; R79.1 Abnormal coagulation profile; I50.9 Heart failure, unspecified; B35.1 Tinea unguium; D69.6 Thrombocytopenia, unspecified; E66.01 Morbid (severe) obesity due to excess calories; L60.3 Nail dystrophy; M19.90 Unspecified osteoarthritis, unspecified site; M21.372 Foot drop, left foot; Z96.652 Presence of left artificial knee joint; R26.9 Unspecified abnormalities of gait and mobility; G89.29 Other chronic pain; M72.2 Plantar fascial fibromatosis; Z79.01 Long term (current) use of anticoagulants; Z86.711 Personal history of pulmonary embolism; Z86.718 Personal history of other venous thrombosis and embolism; Z95.2 Presence of prosthetic heart valve; Z95.810 Presence of automatic (implantable) cardiac defibrillator; Z95.828 Presence of other vascular implants and grafts; Z98.84 Bariatric surgery status; Z88.5 Allergy status to narcotic agent; Z88.0 Allergy status to penicillin; Z91.013 Allergy to seafood; Z88.8 Allergy status to other drugs, medicaments and biological substances; Z91.018 Allergy to other foods; Z79.899 Other long term (current) drug therapy
CPT/HCPCS: 36415; 36569; 71045; 73630; 76937; 80048; 80061; 80305; 83735; 83880; 84100; 84439; 84443; 84481; 84484; 93005; 93306; 93970; 96374; 96375; 97162; 97164; 97165; 99285; C1725; J1650; J1940; J2270; J3475; J3490; J7040; J7050

== ENCOUNTER 2018-05-31 19:33 | Inpatient (IN) | payer MEDICARE, MEDICAID ==
[~2018-05-31] VITALS: Ht 190.5 cm; Wt 187.8 kg
[~2018-05-31 19:33] MED LIST changes: -HYDR-4134 PO; -RIVA10TA PO; +WARF10TA21 PO
[2018-05-31 21:14] LABS: BASOPHILS % 0.7 % (0.0-2.0); CHLORIDE 109 mEq/L (98-107); EOSINOPHILS % 1.3 % (0.0-5.0); HEMOGLOBIN. 13.6 g/dL (14.0-18.0); LYMPHOCYTES % 41.7 % (20.0-50.0); MEAN CORPUSCULAR HEMOGLOBIN 28.2 pg (28.0-32.0); MEAN CORPUSCULAR VOLUME 84.7 fL (80.0-94.0); MEAN PLATELET VOLUME 9.3 fl (7.4-10.4); MONOCYTES % 9.7 % (2.0-8.0); NEUTROPHILS % 46.6 % (40.0-76.0); PLATELET 156 x1000/uL (130-400); RED BLOOD CELL COUNT 4.84 mill/uL (4.7-6.1); RED CELL DISTRIBUTION WIDTH 21.5 % (11.6-14.6)
[2018-05-31] MEDS ORDERED: MORPHINE SULFATE 4 MG/ML CPJ (NOT FOR IM USE) IV ONE (21:45)
[2018-05-31] MEDS ORDERED: ASPIRIN 325MG EC TABLET PO ONE (22:30)
[2018-05-31] MEDS ORDERED: IPRATROPIUM/ALBUTEROL 0.5-3(2.5)MG/3ML NEB INH PRN (23:00)
[2018-05-31] MEDS ORDERED: LORAZEPAM 0.5MG TABLET PO PRN (23:00)
[2018-05-31] MEDS ORDERED: DIPHENHYDRAMINE 50MG/ML VIAL IV PRN (23:00)
[2018-05-31] MEDS ORDERED: MAGNESIUM/ALUMINUM HYDROXIDE/SIMETHICONE 30ML UDC PO PRN (23:00)
[2018-05-31] MEDS ORDERED: ONDANSETRON HCL 4MG/2ML INJ IV PRN (23:00)
[2018-05-31] MEDS ORDERED: HYDROCODONE/ACETAMINOPHEN 5/325MG TABLET PO PRN (23:00)
[2018-05-31] MEDS ORDERED: ENOXAPARIN 40MG/0.4ML SYR SUBCUT SCH (23:00)
[2018-05-31] MEDS ORDERED: DOCUSATE SODIUM 100MG CAPSULE PO PRN (23:00)
[2018-05-31] MEDS ORDERED: ACETAMINOPHEN 325MG TABLET PO PRN (23:00)
[2018-05-31] MEDS ORDERED: GUAIFENESIN 200MG/10ML SUGAR FREE UDC PO PRN (23:00)
[2018-06-01 00:15] LABS: PARTIAL THROMBOPLASTIN TIME 54.8 sec (23.4-31.0); PROTHROMBIN TIME 55.5 sec (9.1-11.1)
[2018-06-01 00:56] LABS: INR 5.7
[2018-06-01] MEDS: MORPHINE SULFATE 4 MG/ML CPJ (NOT FOR IM USE) IV PRN ×5 (01:37→21:29)
[2018-06-01 05:18] LABS: BASOPHILS % 0.9 % (0.0-2.0); CHLORIDE 111 mEq/L (98-107); HEMATOCRIT. 40.2 % (42.0-52.0); HEMOGLOBIN. 13.4 g/dL (14.0-18.0); LYMPHOCYTES % 46.2 % (20.0-50.0); MEAN CORPUSCULAR HEMOGLOBIN 28.3 pg (28.0-32.0); MEAN CORPUSCULAR VOLUME 84.9 fL (80.0-94.0); MEAN PLATELET VOLUME 8.9 fl (7.4-10.4); NEUTROPHILS % 39.9 % (40.0-76.0); PLATELET 150 x1000/uL (130-400); RED BLOOD CELL COUNT 4.73 mill/uL (4.7-6.1); RED CELL DISTRIBUTION WIDTH 20.8 % (11.6-14.6)
[2018-06-01 05:25] LABS: PHOSPHORUS 3.2 mg/dL (2.5-4.9)
[2018-06-01 05:26] LABS: LDL CHOLESTEROL 71 mg/dL (5-100)
[2018-06-01 05:28] LABS: HDL CHOLESTEROL 41 mg/dL (40-59); T4 FREE 1.23 ng/dL (0.76-1.46)
[2018-06-01] MEDS: AMLODIPINE 5MG TABLET PO SCH (09:00)
[2018-06-01 10:28] LABS: CREATINE KINASE 326 IU/L (39-308)
[2018-06-01 12:00] VITALS: BP 159/99
[2018-06-01] MEDS: CLONIDINE 0.1MG TABLET PO PRN (12:27)
[2018-06-01] MEDS: ISOSORB DINIT/HYDRALAZINE HCL 20/37.5MG TABLET PO SCH ×2 (14:07→21:28)
[2018-06-01 16:00] VITALS: BP 135/85
[2018-06-01 17:27] LABS: CLARITY URINE CLEAR (CLEAR); COLOR URINE YELLOW (YELLOW); KETONES URINE NEGATIVE (NEGATIVE); LEUKOCYTE ESTERASE URINE NEGATIVE (NEGATIVE); NITRITE URINE NEGATIVE (NEGATIVE); OCCULT BLOOD URINE NEGATIVE (NEGATIVE); PROTEIN URINE TRACE (NEGATIVE); SPECIFIC GRAVITY URINE 1.029 (1.005-1.030); UROBILINOGEN URINE 0.2 E.U./dL (0.2-1.0)
[2018-06-01] MEDS: CLONIDINE 0.1MG TABLET PO SCH (18:02)
[2018-06-01 20:00] VITALS: BP 115/81
[2018-06-02] VITALS (7 sets, daily range): BP systolic 110–146; BP diastolic 68–99
[2018-06-02] MEDS: CLONIDINE 0.1MG TABLET PO SCH ×3 (03:04→17:32)
[2018-06-02] MEDS: MORPHINE SULFATE 4 MG/ML CPJ (NOT FOR IM USE) IV PRN ×5 (03:33→22:22)
[2018-06-02 06:51] LABS: INR 3.8; PROTHROMBIN TIME 36.9 sec (9.1-11.1)
[2018-06-02 06:56] LABS: BASOPHILS % 0.5 % (0.0-2.0); EOSINOPHILS % 2.3 % (0.0-5.0); HEMATOCRIT. 39.5 % (42.0-52.0); HEMOGLOBIN. 12.9 g/dL (14.0-18.0); LYMPHOCYTES % 34.4 % (20.0-50.0); MEAN CORPUSCULAR HEMOGLOBIN 28.1 pg (28.0-32.0); MEAN PLATELET VOLUME 9.1 fl (7.4-10.4); MONOCYTES % 11.9 % (2.0-8.0); NEUTROPHILS % 50.9 % (40.0-76.0); PLATELET 155 x1000/uL (130-400); RED BLOOD CELL COUNT 4.59 mill/uL (4.7-6.1); RED CELL DISTRIBUTION WIDTH 20.9 % (11.6-14.6)
[2018-06-02] MEDS: ISOSORB DINIT/HYDRALAZINE HCL 20/37.5MG TABLET PO SCH ×2 (06:58→14:00)
[2018-06-02 07:25] LABS: CHLORIDE 109 mEq/L (98-107)
[2018-06-02] MEDS ORDERED: LIDOCAINE HCL 1% 20ML VIAL (Pyxis) INJ ONE (08:14)
[2018-06-02] MEDS: AMLODIPINE 5MG TABLET PO SCH (08:16)
[2018-06-02] MEDS: CLONIDINE 0.1MG TABLET PO PRN (08:17)
[2018-06-03] VITALS (7 sets, daily range): BP systolic 112–146; BP diastolic 66–92
[2018-06-03] MEDS: CLONIDINE 0.1MG TABLET PO SCH ×2 (02:29→17:56)
[2018-06-03] MEDS: MORPHINE SULFATE 4 MG/ML CPJ (NOT FOR IM USE) IV PRN ×3 (02:29→22:34)
[2018-06-03 07:10] LABS: BASOPHILS % 0.5 % (0.0-2.0); EOSINOPHILS % 2.2 % (0.0-5.0); HEMATOCRIT. 38.8 % (42.0-52.0); HEMOGLOBIN. 12.6 g/dL (14.0-18.0); INR 2.2; LYMPHOCYTES % 44.4 % (20.0-50.0); MEAN CORPUSCULAR VOLUME 85.8 fL (80.0-94.0); MEAN PLATELET VOLUME 9.5 fl (7.4-10.4); MONOCYTES % 11.1 % (2.0-8.0); NEUTROPHILS % 41.8 % (40.0-76.0); PLATELET 137 x1000/uL (130-400); PROTHROMBIN TIME 21.4 sec (9.1-11.1); RED BLOOD CELL COUNT 4.52 mill/uL (4.7-6.1); RED CELL DISTRIBUTION WIDTH 20.4 % (11.6-14.6)
[2018-06-03 07:28] LABS: CHLORIDE 107 mEq/L (98-107)
[2018-06-03] MEDS ORDERED: CLINDAMYCIN 900 MG in DEXTROSE 5% WATER 50 ML IV SCH (08:30)
[2018-06-03] MEDS ORDERED: FENTANYL CITRATE/PF 50MCG/ML 2ML VIAL ONE ×2 (08:50→09:52)
[2018-06-03] MEDS ORDERED: MIDAZOLAM HCL 2 MG/2 ML VIAL ONE ×2 (08:52→09:52)
[2018-06-03] MEDS ORDERED: PROPOFOL 200MG/20ML VIAL IV ONE (08:53)
[2018-06-03] MEDS ORDERED: ROCURONIUM BROMIDE 10MG/ML VIAL 5ML IV ONE (08:53)
[2018-06-03] MEDS ORDERED: LIDOCAINE HCL/PF 1% 10 MG/ML 5ML VIAL ONE (08:53)
[2018-06-03] MEDS ORDERED: SUCCINYLCHOLINE CHLORIDE 200MG/10ML IV ONE (08:53)
[2018-06-03] MEDS: AMLODIPINE 5MG TABLET PO SCH (09:00)
[2018-06-03] MEDS ORDERED: FAMOTIDINE 20MG/2ML VIAL IV ONE (09:06)
[2018-06-03] MEDS ORDERED: DIPHENHYDRAMINE 50MG/ML VIAL ONE (09:07)
[2018-06-03] MEDS ORDERED: HYDROCORTISONE SOD SUCCINATE 100 MG/2 ML VIAL ONE (09:07)
[2018-06-03] MEDS ORDERED: GENTAMICIN SULF 40MG/ML 2ML VIAL ONE (09:08)
[2018-06-03] MEDS ORDERED: IODIXANOL 320MG/ML 100 ML BOTTLE IV ONE (09:09)
[2018-06-03] MEDS ORDERED: GENTAMICIN/NS IRRIGATION 500 ML IR ONE (09:11)
[2018-06-03] MEDS ORDERED: LIDOCAINE HCL 1% 20ML VIAL (Pyxis) INJ ONE (09:55)
[2018-06-03] MEDS ORDERED: ONDANSETRON HCL 4MG/2ML INJ ONE (11:43)
[2018-06-03] MEDS ORDERED: MEPERIDINE HCL/PF 25MG/ML CPJ IV PRN (13:00)
[2018-06-03] MEDS ORDERED: FUROSEMIDE 40MG/4ML VIAL IVP NR (15:45)
[2018-06-03] MEDS ORDERED: FUROSEMIDE 20MG/2ML VIAL IV NR (15:55)
[2018-06-03] MEDS: CLINDAMYCIN 900 MG in DEXTROSE 5% WATER 50 ML IV SCH (18:15)
[2018-06-04] VITALS (12 sets, daily range): BP systolic 117–177; BP diastolic 58–98
[2018-06-04] MEDS: CLINDAMYCIN 900 MG in DEXTROSE 5% WATER 50 ML IV SCH (01:41)
[2018-06-04] MEDS: CLONIDINE 0.1MG TABLET PO SCH ×2 (01:41→10:20)
[2018-06-04] MEDS: MORPHINE SULFATE 4 MG/ML CPJ (NOT FOR IM USE) IV PRN ×3 (03:43→17:25)
[2018-06-04 07:04] LABS: BASOPHILS % 0.3 % (0.0-2.0); EOSINOPHILS % 1.5 % (0.0-5.0); HEMOGLOBIN. 12.2 g/dL (14.0-18.0); LYMPHOCYTES % 31.7 % (20.0-50.0); MEAN CORPUSCULAR HEMOGLOBIN 28.4 pg (28.0-32.0); MEAN CORPUSCULAR VOLUME 86.2 fL (80.0-94.0); MEAN PLATELET VOLUME 9.1 fl (7.4-10.4); MONOCYTES % 11.7 % (2.0-8.0); NEUTROPHILS % 54.8 % (40.0-76.0); PLATELET 156 x1000/uL (130-400); RED BLOOD CELL COUNT 4.29 mill/uL (4.7-6.1); RED CELL DISTRIBUTION WIDTH 20.1 % (11.6-14.6)
[2018-06-04 07:07] LABS: CHLORIDE 107 mEq/L (98-107)
[2018-06-04 07:22] LABS: INR 1.7; PROTHROMBIN TIME 16.6 sec (9.1-11.1)
[2018-06-04] MEDS: AMLODIPINE 5MG TABLET PO SCH (08:22)
[2018-06-04] MEDS: SACUBITRIL/VALSARTAN 49MG/51MG TABLET PO SCH ×2 (11:19→21:02)
[2018-06-04] MEDS: POTASSIUM CHLORIDE 20MEQ TABLET SR PO SCH (11:19)
[2018-06-04] MEDS: FUROSEMIDE 40MG/4ML VIAL IVP SCH ×2 (11:19→17:25)
[2018-06-04] MEDS ORDERED: MAGNESIUM 1 G PREMIX 100 ML IV NR (12:00)
[2018-06-04] MEDS: ACETAMINOPHEN WITH CODEINE 300/60MG TABLET PO PRN ×2 (14:54→21:01)
[2018-06-04] MEDS ORDERED: WARFARIN SODIUM 10MG TABLET PO SCH (18:00)
[2018-06-04] MEDS: CARVEDILOL 25MG TABLET PO SCH (20:59)
[2018-06-05] VITALS (12 sets, daily range): BP systolic 117–143; BP diastolic 50–85
[2018-06-05] MEDS: ACETAMINOPHEN WITH CODEINE 300/60MG TABLET PO PRN ×5 (01:17→19:49)
[2018-06-05 06:34] LABS: INR 1.4; PROTHROMBIN TIME 14.4 sec (9.1-11.1)
[2018-06-05] MEDS: FUROSEMIDE 40MG/4ML VIAL IVP SCH ×2 (07:36→17:11)
[2018-06-05 07:41] LABS: BASOPHILS % 0.5 % (0.0-2.0); EOSINOPHILS % 0.8 % (0.0-5.0); HEMATOCRIT. 38.8 % (42.0-52.0); HEMOGLOBIN. 12.7 g/dL (14.0-18.0); LYMPHOCYTES % 26.2 % (20.0-50.0); MEAN CORPUSCULAR HEMOGLOBIN 28.3 pg (28.0-32.0); MEAN CORPUSCULAR VOLUME 86.5 fL (80.0-94.0); MONOCYTES % 11.8 % (2.0-8.0); NEUTROPHILS % 60.7 % (40.0-76.0); RED BLOOD CELL COUNT 4.49 mill/uL (4.7-6.1); RED CELL DISTRIBUTION WIDTH 20.2 % (11.6-14.6)
[2018-06-05 07:43] LABS: CHLORIDE 103 mEq/L (98-107)
[2018-06-05] MEDS: CARVEDILOL 25MG TABLET PO SCH ×2 (09:32→21:30)
[2018-06-05] MEDS: POTASSIUM CHLORIDE 20MEQ TABLET SR PO SCH (09:32)
[2018-06-05] MEDS: SACUBITRIL/VALSARTAN 49MG/51MG TABLET PO SCH ×2 (09:33→21:30)
[2018-06-05 10:29] LABS: PLATELET 112 x1000/uL (130-400)
[2018-06-05] MEDS: ENOXAPARIN 150MG/ML SYR SUBCUT SCH (12:45)
[2018-06-05] MEDS ORDERED: WARFARIN SODIUM 10MG TABLET PO NR (18:00)
[2018-06-05] MEDS ORDERED: WARFARIN SODIUM 2.5MG TABLET PO NR (18:00)
[2018-06-06] VITALS (9 sets, daily range): BP systolic 113–160; BP diastolic 63–86
[2018-06-06] MEDS: ENOXAPARIN 150MG/ML SYR SUBCUT SCH ×2 (00:34→09:52)
[2018-06-06] MEDS: ACETAMINOPHEN WITH CODEINE 300/60MG TABLET PO PRN ×3 (00:38→11:33)
[2018-06-06 08:04] LABS: HEMATOCRIT. 38.9 % (42.0-52.0); HEMOGLOBIN. 12.9 g/dL (14.0-18.0); MEAN CORPUSCULAR HEMOGLOBIN 28.5 pg (28.0-32.0); MEAN CORPUSCULAR VOLUME 86.3 fL (80.0-94.0); PLATELET 168 x1000/uL (130-400); RED BLOOD CELL COUNT 4.51 mill/uL (4.7-6.1); RED CELL DISTRIBUTION WIDTH 20.1 % (11.6-14.6)
[2018-06-06 08:09] LABS: INR 2.4; PROTHROMBIN TIME 23.7 sec (9.1-11.1)
[2018-06-06] MEDS: POTASSIUM CHLORIDE 20MEQ TABLET SR PO SCH (08:46)
[2018-06-06] MEDS: FUROSEMIDE 40MG/4ML VIAL IVP SCH (08:46)
[2018-06-06] MEDS: SACUBITRIL/VALSARTAN 49MG/51MG TABLET PO SCH (08:47)
[2018-06-06] MEDS: CARVEDILOL 25MG TABLET PO SCH (08:47)
[2018-06-06 09:02] LABS: CHLORIDE 104 mEq/L (98-107)
[2018-06-06 11:31] LABS: PLATELET ESTIMATE NORMAL
== END 2018-06-06 15:26 | disposition home or self-care (01) | DRG 227 ==
LOC: ER 19:33 → 5WST 22:46 → EDBEDREQTM 22:51 → EDBEDREQ 22:51 → ENRESERV 06-01 10:34 → 3WST 06-03 17:22
PROVIDERS: ADMIT Family Medicine Adult Medicine; ATTEND Family Medicine Adult Medicine
PROC: 05HY33Z Insertion of Infusion Device into Upper Vein, Percutaneous Approach (ICD-10-PCS; principal; 2018-06-02)
PROC: B54MZZA Ultrasonography of Right Upper Extremity Veins, Guidance (ICD-10-PCS; 2018-06-02)
PROC: 0JPT0PZ Removal of Cardiac Rhythm Related Device from Trunk Subcutaneous Tissue and Fascia, Open Approach (ICD-10-PCS; 2018-06-02)
PROC: 02HQ32Z Insertion of Monitoring Device into Right Pulmonary Artery, Percutaneous Approach (ICD-10-PCS; 2018-06-02)
PROC: 0JH609Z Insertion of Cardiac Resynchronization Defibrillator Pulse Generator into Chest Subcutaneous Tissue and Fascia, Open Approach (ICD-10-PCS; 2018-06-02)
PROC: 02PA0MZ Removal of Cardiac Lead from Heart, Open Approach (ICD-10-PCS; 2018-06-02)
PROC: 02H43JZ Insertion of Pacemaker Lead into Coronary Vein, Percutaneous Approach (ICD-10-PCS; 2018-06-02)
PROC: 02HL3JZ Insertion of Pacemaker Lead into Left Ventricle, Percutaneous Approach (ICD-10-PCS; 2018-06-02)
PROC: 4A133B3 Monitoring of Arterial Pressure, Pulmonary, Percutaneous Approach (ICD-10-PCS; 2018-06-02)
PROC: 4B02XSZ Measurement of Cardiac Pacemaker, External Approach (ICD-10-PCS; 2018-06-02)
PROC: 4A1239Z Monitoring of Cardiac Output, Percutaneous Approach (ICD-10-PCS; 2018-06-02)
PROC: 0JWT0PZ Revision of Cardiac Rhythm Related Device in Trunk Subcutaneous Tissue and Fascia, Open Approach (ICD-10-PCS; 2018-06-03)
DX: I11.0 Hypertensive heart disease with heart failure (principal); D68.59 Other primary thrombophilia; Z68.43 Body mass index [BMI] 50.0-59.9, adult; I42.0 Dilated cardiomyopathy; I50.23 Acute on chronic systolic (congestive) heart failure; E66.01 Morbid (severe) obesity due to excess calories; E83.51 Hypocalcemia; E03.9 Hypothyroidism, unspecified; I45.10 Unspecified right bundle-branch block; G47.33 Obstructive sleep apnea (adult) (pediatric); Z95.810 Presence of automatic (implantable) cardiac defibrillator; E83.42 Hypomagnesemia; Z96.659 Presence of unspecified artificial knee joint; Z79.01 Long term (current) use of anticoagulants; K21.9 Gastro-esophageal reflux disease without esophagitis; Z86.711 Personal history of pulmonary embolism; Z86.718 Personal history of other venous thrombosis and embolism; Z95.1 Presence of aortocoronary bypass graft; Z95.2 Presence of prosthetic heart valve; Z95.828 Presence of other vascular implants and grafts; Z98.84 Bariatric surgery status; Z91.013 Allergy to seafood; Z91.018 Allergy to other foods; Z88.0 Allergy status to penicillin; Z90.49 Acquired absence of other specified parts of digestive tract
CPT/HCPCS: 33225; 33264; 36415; 36569; 71045; 75820; 76937; 80048; 80061; 82550; 83735; 83880; 84100; 84439; 84443; 84484; 85651; 86141; 93005; 93451; 93640; 93970; 96361; 96374; 99285; A4565; C1725; C1769; C1882; C1887; C1892; C1893; C1900; J0330; J1200; J1580; J1644; J1650; J1720; J1940; J2250; J2270; J2405; J2704; J3010; J3475; J3490; J7040; J7050; J7060; Q9967

== ENCOUNTER 2018-06-11 19:51 | Inpatient (IN) | payer MEDICARE, MEDICAID ==
[~2018-06-11] VITALS: Ht 188 cm; Wt 195.6 kg
[2018-06-11] MEDS ORDERED: VANCOMYCIN 1 G PREMIX 200 ML IV ONE (20:45)
[2018-06-11 21:13] LABS: BASOPHILS % 0.6 % (0.0-2.0); EOSINOPHILS % 1.4 % (0.0-5.0); HEMOGLOBIN. 11.4 g/dL (14.0-18.0); LYMPHOCYTES % 29.8 % (20.0-50.0); MEAN CORPUSCULAR HEMOGLOBIN 29.2 pg (28.0-32.0); MEAN PLATELET VOLUME 8.6 fl (7.4-10.4); MONOCYTES % 7.6 % (2.0-8.0); NEUTROPHILS % 60.6 % (40.0-76.0); PLATELET 230 x1000/uL (130-400); RED BLOOD CELL COUNT 3.91 mill/uL (4.7-6.1); RED CELL DISTRIBUTION WIDTH 17.9 % (11.6-14.6)
[2018-06-11 21:18] LABS: CHLORIDE 109 mEq/L (98-107)
[2018-06-11 21:21] LABS: INR 2.1; PARTIAL THROMBOPLASTIN TIME 48.8 sec (23.4-31.0); PROTHROMBIN TIME 20.7 sec (9.1-11.1)
[2018-06-11] MEDS ORDERED: MORPHINE SULFATE 4 MG/ML CPJ (NOT FOR IM USE) IV STA (21:24)
[2018-06-11] MEDS ORDERED: ONDANSETRON HCL 4MG/2ML INJ IV STA (21:24)
[2018-06-11] MEDS ORDERED: FUROSEMIDE 40MG/4ML VIAL IV ONE (21:30)
[2018-06-11 22:04] LABS: CLARITY URINE CLEAR (CLEAR); COLOR URINE DARK YELLOW (YELLOW); KETONES URINE TRACE (NEGATIVE); LEUKOCYTE ESTERASE URINE NEGATIVE (NEGATIVE); NITRITE URINE NEGATIVE (NEGATIVE); OCCULT BLOOD URINE TRACE (NEGATIVE); PROTEIN URINE NEGATIVE (NEGATIVE); SPECIFIC GRAVITY URINE 1.028 (1.005-1.030)
[2018-06-12] MEDS ORDERED: VANCOMYCIN 1250MG in DEXTROSE 5% WATER 250ML IV SCH ×2
[2018-06-12] MEDS: MORPHINE SULFATE 4 MG/ML CPJ (NOT FOR IM USE) IV PRN ×6 (03:45→20:46)
[2018-06-12 15:15] VITALS: BP 143/93
[2018-06-12] MEDS ORDERED: FUROSEMIDE 40MG/4ML VIAL IVP NR (15:45)
[2018-06-12] MEDS ORDERED: ONDANSETRON HCL 4MG/2ML INJ IV PRN (15:45)
[2018-06-12] MEDS ORDERED: MORPHINE SULFATE 2 MG/ML CPJ (NOT FOR IM USE) IV PRN (15:45)
[2018-06-12] MEDS ORDERED: ACETAMINOPHEN 325MG TABLET PO PRN ×2 (15:45→19:00)
[2018-06-12] MEDS ORDERED: HYDROCODONE/ACETAMINOPHEN 5/325MG TABLET PO PRN (15:49)
[2018-06-12] MEDS ORDERED: NON FORMULARY PATIENT HOME MED XX SCH (17:00)
[2018-06-12 17:10] LABS: INR 1.6; PROTHROMBIN TIME 16.3 sec (9.1-11.1)
[2018-06-12] MEDS ORDERED: VANCOMYCIN 2,000 MG in DEXT 5% WATER 500 ML IV SCH (18:00)
[2018-06-12] MEDS ORDERED: DIPHENHYDRAMINE 50MG/ML VIAL IV PRN (19:00)
[2018-06-12] MEDS ORDERED: DOCUSATE SODIUM 100MG CAPSULE PO PRN (19:00)
[2018-06-12 20:00] VITALS: BP 156/81
[2018-06-13 00:05] VITALS: BP 148/90
[2018-06-13] MEDS: MORPHINE SULFATE 4 MG/ML CPJ (NOT FOR IM USE) IV PRN ×5 (00:37→23:53)
[2018-06-13] MEDS: VANCOMYCIN 1250MG in DEXTROSE 5% WATER 250ML IV SCH ×4 (00:38→23:53)
[2018-06-13 04:00] VITALS: BP 147/99
[2018-06-13 08:00] VITALS: BP 141/80
[2018-06-13 11:04] LABS: BASOPHILS % 0.5 % (0.0-2.0); EOSINOPHILS % 3.9 % (0.0-5.0); HEMATOCRIT. 34.5 % (42.0-52.0); HEMOGLOBIN. 11.3 g/dL (14.0-18.0); LYMPHOCYTES % 24.8 % (20.0-50.0); MEAN CORPUSCULAR HEMOGLOBIN 28.7 pg (28.0-32.0); MEAN CORPUSCULAR VOLUME 87.5 fL (80.0-94.0); MEAN PLATELET VOLUME 8.8 fl (7.4-10.4); MONOCYTES % 10.3 % (2.0-8.0); NEUTROPHILS % 60.5 % (40.0-76.0); PLATELET 216 x1000/uL (130-400); RED BLOOD CELL COUNT 3.94 mill/uL (4.7-6.1); RED CELL DISTRIBUTION WIDTH 18.1 % (11.6-14.6)
[2018-06-13 11:10] LABS: CHLORIDE 107 mEq/L (98-107)
[2018-06-13 12:00] VITALS: BP 164/82
[2018-06-13] MEDS: CARVEDILOL 25MG TABLET PO SCH ×2 (13:27→21:14)
[2018-06-13 16:00] VITALS: BP 155/92
[2018-06-13] MEDS ORDERED: MAGNESIUM 1 G PREMIX 100 ML IV NR (16:00)
[2018-06-13] MEDS: MAGNESIUM 1 G PREMIX 100 ML IV NR ×2 (16:00→21:15)
[2018-06-13] MEDS: FUROSEMIDE 40MG TABLET PO SCH (17:59)
[2018-06-13] MEDS ORDERED: WARFARIN SODIUM 10MG TABLET PO NR (18:00)
[2018-06-13 19:58] VITALS: BP 144/95
[2018-06-13] MEDS: ENTRESTO PO SCH (21:14)
[2018-06-14] VITALS (11 sets, daily range): BP systolic 107–150; BP diastolic 56–90
[2018-06-14] MEDS: MORPHINE SULFATE 4 MG/ML CPJ (NOT FOR IM USE) IV PRN ×7 (04:18→21:31)
[2018-06-14] MEDS: FUROSEMIDE 40MG TABLET PO SCH ×2 (06:23→17:15)
[2018-06-14 07:16] LABS: BASOPHILS % 0.6 % (0.0-2.0); EOSINOPHILS % 3.2 % (0.0-5.0); HEMATOCRIT. 34.5 % (42.0-52.0); HEMOGLOBIN. 11.5 g/dL (14.0-18.0); LYMPHOCYTES % 31.3 % (20.0-50.0); MEAN CORPUSCULAR HEMOGLOBIN 29.1 pg (28.0-32.0); MEAN CORPUSCULAR VOLUME 87.5 fL (80.0-94.0); MEAN PLATELET VOLUME 8.7 fl (7.4-10.4); MONOCYTES % 9.8 % (2.0-8.0); NEUTROPHILS % 55.1 % (40.0-76.0); PLATELET 226 x1000/uL (130-400); RED BLOOD CELL COUNT 3.94 mill/uL (4.7-6.1)
[2018-06-14 07:18] LABS: INR 1.2; PROTHROMBIN TIME 12.2 sec (9.1-11.1)
[2018-06-14 07:30] LABS: CHLORIDE 107 mEq/L (98-107)
[2018-06-14] MEDS: CARVEDILOL 25MG TABLET PO SCH ×2 (08:41→23:19)
[2018-06-14] MEDS: ENTRESTO PO SCH ×2 (08:42→21:31)
[2018-06-14] MEDS ORDERED: SODIUM BICARBONATE 4% (2.4MEQ) 5ML VIAL IV ONE (09:39)
[2018-06-14] MEDS ORDERED: LIDOCAINE HCL 1% 20ML VIAL (Pyxis) INJ ONE ×2 (09:39→12:40)
[2018-06-14] MEDS: VANCOMYCIN 1250MG in DEXTROSE 5% WATER 250ML IV SCH ×2 (10:09→23:18)
[2018-06-14] MEDS ORDERED: GENTAMICIN SULF 40MG/ML 2ML VIAL ONE (12:40)
[2018-06-14] MEDS ORDERED: GENTAMICIN/NS IRRIGATION 500 ML IR ONE (13:27)
[2018-06-14] MEDS ORDERED: MIDAZOLAM HCL 5 MG/5 ML VIAL ONE (13:35)
[2018-06-14] MEDS ORDERED: PROPOFOL 200MG/20ML VIAL IV ONE ×3 (13:41→14:47)
[2018-06-14] MEDS ORDERED: FLUMAZENIL 0.1 MG/ML 5ML VIAL IV ONE (13:48)
[2018-06-14] MEDS ORDERED: FENTANYL CITRATE/PF 50MCG/ML 2ML VIAL ONE (15:25)
[2018-06-14] MEDS ORDERED: MEPERIDINE HCL/PF 25MG/ML CPJ IV PRN ×2 (15:45)
[2018-06-14] MEDS ORDERED: ONDANSETRON HCL 4MG/2ML INJ IV PRN (15:45)
[2018-06-14] MEDS ORDERED: SODIUM CHLORIDE 0.9% 1,000 ML IV NR (16:00)
[2018-06-14] MEDS ORDERED: WARFARIN SODIUM 10MG TABLET PO NR (18:00)
[2018-06-14] MEDS ORDERED: WARFARIN SODIUM 10MG TABLET PO SCH (18:00)
[2018-06-14] MEDS: OXYCODONE HCL/ACETAMINOPHEN 5/325MG TABLET PO PRN (18:04)
[2018-06-15] VITALS (17 sets, daily range): BP systolic 118–164; BP diastolic 68–97
[2018-06-15] MEDS: MORPHINE SULFATE 4 MG/ML CPJ (NOT FOR IM USE) IV PRN ×4 (02:20→18:27)
[2018-06-15 06:44] LABS: INR 1.2
[2018-06-15 06:54] LABS: CHLORIDE 106 mEq/L (98-107)
[2018-06-15 07:16] LABS: BASOPHILS % 0.4 % (0.0-2.0); EOSINOPHILS % 3.4 % (0.0-5.0); HEMATOCRIT. 34.8 % (42.0-52.0); HEMOGLOBIN. 11.2 g/dL (14.0-18.0); LYMPHOCYTES % 29.3 % (20.0-50.0); MEAN CORPUSCULAR HEMOGLOBIN 28.6 pg (28.0-32.0); MEAN CORPUSCULAR VOLUME 88.6 fL (80.0-94.0); MEAN PLATELET VOLUME 10.1 fl (7.4-10.4); MONOCYTES % 10.2 % (2.0-8.0); NEUTROPHILS % 56.7 % (40.0-76.0); PLATELET 174 x1000/uL (130-400); RED BLOOD CELL COUNT 3.93 mill/uL (4.7-6.1); RED CELL DISTRIBUTION WIDTH 17.5 % (11.6-14.6)
[2018-06-15] MEDS: ENTRESTO PO SCH ×2 (08:10→20:59)
[2018-06-15] MEDS: FUROSEMIDE 40MG TABLET PO SCH (08:10)
[2018-06-15] MEDS: CARVEDILOL 25MG TABLET PO SCH ×2 (08:10→20:59)
[2018-06-15] MEDS: VANCOMYCIN 1250MG in DEXTROSE 5% WATER 250ML IV SCH ×3 (08:51→23:42)
[2018-06-15] MEDS: FUROSEMIDE 40MG/4ML VIAL IVP SCH (16:21)
[2018-06-15] MEDS ORDERED: WARFARIN SODIUM 10MG TABLET PO NR (18:00)
[2018-06-16] VITALS (17 sets, daily range): BP systolic 121–151; BP diastolic 39–99
[2018-06-16] MEDS: MORPHINE SULFATE 4 MG/ML CPJ (NOT FOR IM USE) IV PRN ×4 (02:39→19:58)
[2018-06-16 06:29] LABS: INR 1.5; PROTHROMBIN TIME 14.7 sec (9.1-11.1)
[2018-06-16 06:43] LABS: BASOPHILS % 0.4 % (0.0-2.0); EOSINOPHILS % 2.6 % (0.0-5.0); HEMOGLOBIN. 11.5 g/dL (14.0-18.0); LYMPHOCYTES % 32.1 % (20.0-50.0); MEAN CORPUSCULAR HEMOGLOBIN 29.7 pg (28.0-32.0); MEAN CORPUSCULAR VOLUME 87.9 fL (80.0-94.0); MEAN PLATELET VOLUME 8.3 fl (7.4-10.4); MONOCYTES % 11.6 % (2.0-8.0); NEUTROPHILS % 53.3 % (40.0-76.0); PLATELET 148 x1000/uL (130-400); RED BLOOD CELL COUNT 3.87 mill/uL (4.7-6.1); RED CELL DISTRIBUTION WIDTH 17.4 % (11.6-14.6)
[2018-06-16 06:45] LABS: CHLORIDE 103 mEq/L (98-107)
[2018-06-16] MEDS: VANCOMYCIN 1250MG in DEXTROSE 5% WATER 250ML IV SCH ×3 (08:52→23:55)
[2018-06-16] MEDS: FUROSEMIDE 40MG/4ML VIAL IVP SCH ×2 (08:52→17:32)
[2018-06-16] MEDS: ENTRESTO PO SCH ×2 (08:52→21:00)
[2018-06-16] MEDS: CARVEDILOL 25MG TABLET PO SCH ×2 (08:53→21:00)
[2018-06-16] MEDS ORDERED: WARFARIN SODIUM 10MG TABLET PO NR (18:00)
[2018-06-17] VITALS (12 sets, daily range): BP systolic 105–152; BP diastolic 47–114
[2018-06-17] MEDS: MORPHINE SULFATE 4 MG/ML CPJ (NOT FOR IM USE) IV PRN (03:00)
[2018-06-17 06:44] LABS: INR 1.7; PROTHROMBIN TIME 16.7 sec (9.1-11.1)
[2018-06-17] MEDS: FUROSEMIDE 40MG/4ML VIAL IVP SCH (07:15)
[2018-06-17] MEDS: VANCOMYCIN 1250MG in DEXTROSE 5% WATER 250ML IV SCH (08:57)
[2018-06-17 09:00] LABS: CHLORIDE 102 mEq/L (98-107)
[2018-06-17] MEDS: CARVEDILOL 25MG TABLET PO SCH (09:00)
[2018-06-17] MEDS: ENTRESTO PO SCH (09:03)
[2018-06-17] MEDS: OXYCODONE HCL/ACETAMINOPHEN 5/325MG TABLET PO PRN (11:32)
[2018-06-17] MEDS ORDERED: WARFARIN SODIUM 10MG TABLET PO NR ×2 (13:17→18:00)
[2018-06-17] MEDS ORDERED: WARFARIN SODIUM 5MG TABLET PO NR (18:00)
== END 2018-06-17 14:35 | disposition home or self-care (01) | DRG 260 ==
LOC: ER 19:51 → 7WST 21:38 → EDBEDREQTM 21:42 → EDBEDREQSVC 21:42 → EDBEDREQ 21:42 → CANRESERV 06-12 13:49 → 3WST 06-14 17:18
PROVIDERS: ADMIT Internal Medicine; ATTEND Internal Medicine
PROC: 02HV33Z Insertion of Infusion Device into Superior Vena Cava, Percutaneous Approach (ICD-10-PCS; principal; 2018-06-14)
PROC: 0JWT0PZ Revision of Cardiac Rhythm Related Device in Trunk Subcutaneous Tissue and Fascia, Open Approach (ICD-10-PCS; 2018-06-14)
PROC: B548ZZA Ultrasonography of Superior Vena Cava, Guidance (ICD-10-PCS; 2018-06-14)
PROC: 0JC60ZZ Extirpation of Matter from Chest Subcutaneous Tissue and Fascia, Open Approach (ICD-10-PCS; 2018-06-14)
DX: T82.7XXA Infection and inflammatory reaction due to other cardiac and vascular devices, implants and grafts, initial encounter (principal); I50.23 Acute on chronic systolic (congestive) heart failure; L76.32 Postprocedural hematoma of skin and subcutaneous tissue following other procedure; I42.0 Dilated cardiomyopathy; Z68.43 Body mass index [BMI] 50.0-59.9, adult; E03.9 Hypothyroidism, unspecified; E83.42 Hypomagnesemia; I11.0 Hypertensive heart disease with heart failure; Y83.1 Surgical operation with implant of artificial internal device as the cause of abnormal reaction of the patient, or of later complication, without mention of misadventure at the time of the procedure; E66.01 Morbid (severe) obesity due to excess calories; Z96.659 Presence of unspecified artificial knee joint; E87.8 Other disorders of electrolyte and fluid balance, not elsewhere classified; T45.515A Adverse effect of anticoagulants, initial encounter; Z79.01 Long term (current) use of anticoagulants; Z82.49 Family history of ischemic heart disease and other diseases of the circulatory system; Z86.711 Personal history of pulmonary embolism; Z86.718 Personal history of other venous thrombosis and embolism; Z95.1 Presence of aortocoronary bypass graft; Z95.2 Presence of prosthetic heart valve; Z95.810 Presence of automatic (implantable) cardiac defibrillator; Z95.828 Presence of other vascular implants and grafts; Z98.84 Bariatric surgery status; Z88.0 Allergy status to penicillin; Z91.013 Allergy to seafood; Z88.8 Allergy status to other drugs, medicaments and biological substances; Z91.018 Allergy to other foods; Z79.899 Other long term (current) drug therapy
CPT/HCPCS: 33223; 36415; 36569; 71045; 76604; 76937; 80048; 80202; 83605; 83735; 83880; 84145; 84484; 87070; 87075; 87804; 93005; 93640; 93970; 96365; 96366; 96375; 96376; 99285; A4565; C1725; C1893; J1580; J1940; J2175; J2250; J2270; J2405; J2704; J3010; J3370; J3475; J3490; J7050; J7060

== ENCOUNTER 2018-06-28 17:24 | Inpatient (IN) | payer MEDICARE, MEDICAID ==
[~2018-06-28] VITALS: Ht 190.5 cm; Wt 190.5 kg
[~2018-06-28 17:24] MED LIST changes: -IVAB5TAB PO
[2018-06-28] MEDS ORDERED: FUROSEMIDE 40MG/4ML VIAL IV ONE (18:30)
[2018-06-28] MEDS ORDERED: NITROGLYCERIN OINT 1GM/INCH UDPKT TD ONE (18:30)
[2018-06-28] MEDS ORDERED: MORPHINE SULFATE 4 MG/ML CPJ (NOT FOR IM USE) IV ONE (19:00)
[2018-06-28 19:09] LABS: CHLORIDE 107 mEq/L (98-107)
[2018-06-28 19:11] LABS: BASOPHILS % 0.9 % (0.0-2.0); HEMOGLOBIN. 12.7 g/dL (14.0-18.0); LYMPHOCYTES % 36.7 % (20.0-50.0); MEAN CORPUSCULAR HEMOGLOBIN 29.4 pg (28.0-32.0); MEAN CORPUSCULAR VOLUME 87.9 fL (80.0-94.0); MEAN PLATELET VOLUME 9.1 fl (7.4-10.4); MONOCYTES % 10.5 % (2.0-8.0); NEUTROPHILS % 48.9 % (40.0-76.0); PLATELET 142 x1000/uL (130-400); RED BLOOD CELL COUNT 4.32 mill/uL (4.7-6.1); RED CELL DISTRIBUTION WIDTH 16.2 % (11.6-14.6)
[2018-06-28 23:59] VITALS: BP 139/83
[2018-06-29] MEDS ORDERED: HYDROCODONE/ACETAMINOPHEN 10/325MG TABLET PO PRN (01:45)
[2018-06-29] MEDS ORDERED: ACETAMINOPHEN 325MG TABLET PO PRN (01:45)
[2018-06-29] MEDS ORDERED: ONDANSETRON HCL 4MG/2ML INJ IV PRN (02:30)
[2018-06-29] MEDS ORDERED: IPRATROPIUM/ALBUTEROL 0.5-3(2.5)MG/3ML NEB HHN PRN (03:30)
[2018-06-29 04:00] VITALS: BP 132/78
[2018-06-29] MEDS: MORPHINE SULFATE 4 MG/ML CPJ (NOT FOR IM USE) IV PRN ×5 (04:30→22:42)
[2018-06-29] MEDS: OMEPRAZOLE 20MG CAPSULE EXTENDED RELEASE PO SCH ×2 (06:21→17:34)
[2018-06-29 08:00] VITALS: BP 123/67
[2018-06-29 08:44] LABS: INR 1.3; PROTHROMBIN TIME 13.4 sec (9.6-11.0)
[2018-06-29 08:45] LABS: CHLORIDE 108 mEq/L (98-107)
[2018-06-29 08:57] LABS: BASOPHILS % 0.6 % (0.0-2.0); EOSINOPHILS % 3.1 % (0.0-5.0); HEMATOCRIT. 35.8 % (42.0-52.0); HEMOGLOBIN. 11.9 g/dL (14.0-18.0); LYMPHOCYTES % 44.1 % (20.0-50.0); MEAN CORPUSCULAR HEMOGLOBIN 29.4 pg (28.0-32.0); MEAN CORPUSCULAR VOLUME 88.7 fL (80.0-94.0); MONOCYTES % 9.8 % (2.0-8.0); NEUTROPHILS % 42.4 % (40.0-76.0); PLATELET 185 x1000/uL (130-400); RED BLOOD CELL COUNT 4.04 mill/uL (4.7-6.1); RED CELL DISTRIBUTION WIDTH 16.2 % (11.6-14.6)
[2018-06-29] MEDS ORDERED: MEDICATION NOT ON FORMULARY EA (Furosemide 40 MG) PO SCH (09:00)
[2018-06-29] MEDS ORDERED: FUROSEMIDE 40MG/4ML VIAL IVP SCH (09:00)
[2018-06-29] MEDS: DOCUSATE SODIUM 100MG CAPSULE PO SCH ×2 (09:02→17:34)
[2018-06-29] MEDS: CARVEDILOL 25MG TABLET PO SCH ×2 (09:02→20:59)
[2018-06-29] MEDS: POTASSIUM CHLORIDE 20MEQ TABLET SR PO SCH (09:02)
[2018-06-29 12:00] VITALS: BP 107/54
[2018-06-29 16:00] VITALS: BP 118/75
[2018-06-29] MEDS: FUROSEMIDE 100MG/10ML VIAL IVP SCH (17:34)
[2018-06-29] MEDS ORDERED: WARFARIN SODIUM 5MG TABLET PO SCH (18:00)
[2018-06-29] MEDS ORDERED: WARFARIN SODIUM 10MG TABLET PO SCH (18:00)
[2018-06-29 20:50] VITALS: BP 143/73
[2018-06-29] MEDS ORDERED: ZOLPIDEM TARTRATE 5MG TABLET PO PRN (21:00)
[2018-06-30] VITALS (7 sets, daily range): BP systolic 108–133; BP diastolic 56–86
[2018-06-30] MEDS: FUROSEMIDE 100MG/10ML VIAL IVP SCH ×2 (05:53→17:18)
[2018-06-30] MEDS: OMEPRAZOLE 20MG CAPSULE EXTENDED RELEASE PO SCH ×2 (05:53→17:18)
[2018-06-30 06:17] LABS: BASOPHILS % 0.6 % (0.0-2.0); EOSINOPHILS % 2.6 % (0.0-5.0); HEMATOCRIT. 37.6 % (42.0-52.0); HEMOGLOBIN. 12.7 g/dL (14.0-18.0); MEAN CORPUSCULAR HEMOGLOBIN 29.9 pg (28.0-32.0); MEAN CORPUSCULAR VOLUME 88.9 fL (80.0-94.0); MEAN PLATELET VOLUME 8.5 fl (7.4-10.4); MONOCYTES % 10.8 % (2.0-8.0); PLATELET 173 x1000/uL (130-400); RED BLOOD CELL COUNT 4.24 mill/uL (4.7-6.1); RED CELL DISTRIBUTION WIDTH 16.3 % (11.6-14.6)
[2018-06-30 06:32] LABS: CHLORIDE 106 mEq/L (98-107)
[2018-06-30 06:42] LABS: D-DIMER 0.81 mg/L FEU (<0.50); INR 1.2; PROTHROMBIN TIME 12.5 sec (9.6-11.0)
[2018-06-30] MEDS: POTASSIUM CHLORIDE 20MEQ TABLET SR PO SCH (08:49)
[2018-06-30] MEDS: DOCUSATE SODIUM 100MG CAPSULE PO SCH ×2 (08:49→17:18)
[2018-06-30] MEDS: CARVEDILOL 25MG TABLET PO SCH ×2 (08:50→21:13)
[2018-06-30] MEDS: MORPHINE SULFATE 4 MG/ML CPJ (NOT FOR IM USE) IV PRN ×4 (08:51→23:59)
[2018-06-30] MEDS ORDERED: WARFARIN SODIUM 5MG TABLET PO SCH (09:30)
[2018-07-01 03:57] VITALS: BP 122/77
[2018-07-01] MEDS: MORPHINE SULFATE 4 MG/ML CPJ (NOT FOR IM USE) IV PRN ×4 (05:25→20:39)
[2018-07-01] MEDS: FUROSEMIDE 100MG/10ML VIAL IVP SCH (06:38)
[2018-07-01] MEDS: OMEPRAZOLE 20MG CAPSULE EXTENDED RELEASE PO SCH ×2 (06:38→18:05)
[2018-07-01 07:12] LABS: BASOPHILS % 0.4 % (0.0-2.0); EOSINOPHILS % 2.8 % (0.0-5.0); HEMATOCRIT. 39.7 % (42.0-52.0); LYMPHOCYTES % 44.5 % (20.0-50.0); MEAN CORPUSCULAR HEMOGLOBIN 29.2 pg (28.0-32.0); MEAN CORPUSCULAR VOLUME 89.1 fL (80.0-94.0); MEAN PLATELET VOLUME 8.7 fl (7.4-10.4); MONOCYTES % 9.5 % (2.0-8.0); NEUTROPHILS % 42.8 % (40.0-76.0); PLATELET 173 x1000/uL (130-400); RED BLOOD CELL COUNT 4.45 mill/uL (4.7-6.1); RED CELL DISTRIBUTION WIDTH 16.4 % (11.6-14.6)
[2018-07-01 07:15] LABS: INR 1.5; PROTHROMBIN TIME 15.1 sec (9.6-11.0)
[2018-07-01 07:51] LABS: CHLORIDE 104 mEq/L (98-107)
[2018-07-01 08:00] VITALS: BP 138/69
[2018-07-01] MEDS: POTASSIUM CHLORIDE 20MEQ TABLET SR PO SCH (10:19)
[2018-07-01] MEDS: DOCUSATE SODIUM 100MG CAPSULE PO SCH ×2 (10:19→18:04)
[2018-07-01] MEDS: CARVEDILOL 25MG TABLET PO SCH ×2 (10:21→20:39)
[2018-07-01 12:00] VITALS: BP 112/71
[2018-07-01 16:00] VITALS: BP 116/69
[2018-07-01] MEDS: WARFARIN SODIUM 10MG TABLET PO SCH (18:04)
[2018-07-01] MEDS: FUROSEMIDE 40MG/4ML VIAL IVP SCH (18:05)
[2018-07-01 20:00] VITALS: BP 119/58
[2018-07-02] VITALS: BP 125/87
[2018-07-02] MEDS: MORPHINE SULFATE 4 MG/ML CPJ (NOT FOR IM USE) IV PRN ×5 (00:57→21:55)
[2018-07-02 04:00] VITALS: BP 146/83
[2018-07-02 05:42] LABS: BASOPHILS % 0.7 % (0.0-2.0); EOSINOPHILS % 2.8 % (0.0-5.0); HEMATOCRIT. 38.5 % (42.0-52.0); HEMOGLOBIN. 12.9 g/dL (14.0-18.0); LYMPHOCYTES % 41.8 % (20.0-50.0); MEAN CORPUSCULAR HEMOGLOBIN 29.7 pg (28.0-32.0); MEAN CORPUSCULAR VOLUME 88.4 fL (80.0-94.0); MEAN PLATELET VOLUME 8.7 fl (7.4-10.4); MONOCYTES % 11.5 % (2.0-8.0); NEUTROPHILS % 43.2 % (40.0-76.0); PLATELET 175 x1000/uL (130-400); RED BLOOD CELL COUNT 4.35 mill/uL (4.7-6.1); RED CELL DISTRIBUTION WIDTH 16.5 % (11.6-14.6)
[2018-07-02 05:47] LABS: INR 1.9; PROTHROMBIN TIME 19.5 sec (9.6-11.0)
[2018-07-02] MEDS: OMEPRAZOLE 20MG CAPSULE EXTENDED RELEASE PO SCH ×2 (06:27→17:07)
[2018-07-02] MEDS: FUROSEMIDE 40MG/4ML VIAL IVP SCH ×2 (06:27→17:07)
[2018-07-02 08:00] VITALS: BP 125/80
[2018-07-02 08:01] LABS: CHLORIDE 106 mEq/L (98-107)
[2018-07-02] MEDS: CARVEDILOL 25MG TABLET PO SCH ×2 (08:43→21:19)
[2018-07-02] MEDS: DOCUSATE SODIUM 100MG CAPSULE PO SCH ×2 (08:43→18:10)
[2018-07-02] MEDS: POTASSIUM CHLORIDE 20MEQ TABLET SR PO SCH (08:43)
[2018-07-02 12:00] VITALS: BP 119/71
[2018-07-02 16:00] VITALS: BP 123/76
[2018-07-02] MEDS: WARFARIN SODIUM 10MG TABLET PO SCH (17:07)
[2018-07-02 20:00] VITALS: BP 131/75
[2018-07-03] VITALS: BP 110/71
[2018-07-03] MEDS: MORPHINE SULFATE 4 MG/ML CPJ (NOT FOR IM USE) IV PRN ×2 (03:32→08:40)
[2018-07-03 04:00] VITALS: BP 130/71
[2018-07-03] MEDS: FUROSEMIDE 40MG/4ML VIAL IVP SCH (06:17)
[2018-07-03] MEDS: OMEPRAZOLE 20MG CAPSULE EXTENDED RELEASE PO SCH (06:21)
[2018-07-03 06:48] LABS: BASOPHILS % 0.7 % (0.0-2.0); EOSINOPHILS % 2.7 % (0.0-5.0); HEMATOCRIT. 38.3 % (42.0-52.0); LYMPHOCYTES % 40.5 % (20.0-50.0); MEAN CORPUSCULAR HEMOGLOBIN 29.9 pg (28.0-32.0); MEAN CORPUSCULAR VOLUME 88.2 fL (80.0-94.0); MEAN PLATELET VOLUME 8.5 fl (7.4-10.4); MONOCYTES % 11.7 % (2.0-8.0); NEUTROPHILS % 44.4 % (40.0-76.0); PLATELET 148 x1000/uL (130-400); RED BLOOD CELL COUNT 4.34 mill/uL (4.7-6.1); RED CELL DISTRIBUTION WIDTH 16.4 % (11.6-14.6)
[2018-07-03 06:54] LABS: INR 2.6; PROTHROMBIN TIME 25.3 sec (9.6-11.0)
[2018-07-03 08:00] VITALS: BP 125/72
[2018-07-03 08:10] LABS: CHLORIDE 106 mEq/L (98-107)
[2018-07-03] MEDS: DOCUSATE SODIUM 100MG CAPSULE PO SCH (08:40)
[2018-07-03] MEDS: POTASSIUM CHLORIDE 20MEQ TABLET SR PO SCH (08:40)
[2018-07-03] MEDS: CARVEDILOL 25MG TABLET PO SCH (08:41)
[2018-07-03 11:59] VITALS: BP 123/69
[2018-07-03 14:24] VITALS: BP 123/69
== END 2018-07-03 15:10 | disposition home or self-care (01) | DRG 205 ==
LOC: ER 18:00 → 6WST 22:09 → ENRESERV 22:30
PROVIDERS: ADMIT Specialist; ATTEND Specialist
DX: M94.0 Chondrocostal junction syndrome [Tietze] (principal); I26.99 Other pulmonary embolism without acute cor pulmonale; I50.23 Acute on chronic systolic (congestive) heart failure; Z68.43 Body mass index [BMI] 50.0-59.9, adult; I42.0 Dilated cardiomyopathy; I11.0 Hypertensive heart disease with heart failure; E66.01 Morbid (severe) obesity due to excess calories; I25.10 Atherosclerotic heart disease of native coronary artery without angina pectoris; R79.1 Abnormal coagulation profile; Z96.659 Presence of unspecified artificial knee joint; F51.04 Psychophysiologic insomnia; I35.9 Nonrheumatic aortic valve disorder, unspecified; Z79.899 Other long term (current) drug therapy; Z86.718 Personal history of other venous thrombosis and embolism; Z95.810 Presence of automatic (implantable) cardiac defibrillator; Z95.2 Presence of prosthetic heart valve; Z79.01 Long term (current) use of anticoagulants; Z95.828 Presence of other vascular implants and grafts; Z95.1 Presence of aortocoronary bypass graft; Z86.711 Personal history of pulmonary embolism; Z98.84 Bariatric surgery status; Z88.0 Allergy status to penicillin; Z91.013 Allergy to seafood; Z88.8 Allergy status to other drugs, medicaments and biological substances; Z91.018 Allergy to other foods
CPT/HCPCS: 36415; 71045; 78580; 80048; 83735; 83880; 84484; 85379; 93005; 93306; 93970; 99285; J1940; J2270; J2405

== ENCOUNTER 2018-07-29 13:00 | Inpatient (IN) | payer MEDICARE, MEDICAID ==
[~2018-07-29] VITALS: Ht 190.5 cm; Wt 193.9 kg
[2018-07-29] MEDS ORDERED: SODIUM CHLORIDE 0.9% 1,000 ML IV ONE (15:20)
[2018-07-29] MEDS ORDERED: MORPHINE SULFATE 4 MG/ML CPJ (NOT FOR IM USE) IV STA ×2 (15:20→18:58)
[2018-07-29] MEDS ORDERED: ONDANSETRON HCL 4MG/2ML INJ IV STA ×2 (15:20→18:58)
[2018-07-29 16:31] LABS: BASOPHILS % 0.6 % (0.0-2.0); EOSINOPHILS % 1.4 % (0.0-5.0); HEMATOCRIT. 35.6 % (42.0-52.0); HEMOGLOBIN. 11.6 g/dL (14.0-18.0); LYMPHOCYTES % 38.1 % (20.0-50.0); MEAN CORPUSCULAR HEMOGLOBIN 28.6 pg (28.0-32.0); MEAN CORPUSCULAR VOLUME 87.9 fL (80.0-94.0); MEAN PLATELET VOLUME 9.2 fl (7.4-10.4); MONOCYTES % 11.2 % (2.0-8.0); NEUTROPHILS % 48.7 % (40.0-76.0); PLATELET 155 x1000/uL (130-400); RED BLOOD CELL COUNT 4.05 mill/uL (4.7-6.1); RED CELL DISTRIBUTION WIDTH 14.7 % (11.6-14.6)
[2018-07-29 16:37] LABS: CHLORIDE 109 mEq/L (98-107)
[2018-07-29 16:39] LABS: INR 2.8; PARTIAL THROMBOPLASTIN TIME 46.1 sec (23.4-31.0); PROTHROMBIN TIME 28.1 sec (9.6-11.0)
[2018-07-29 17:08] LABS: CLARITY URINE CLEAR (CLEAR); COLOR URINE YELLOW (YELLOW); KETONES URINE NEGATIVE (NEGATIVE); LEUKOCYTE ESTERASE URINE NEGATIVE (NEGATIVE); NITRITE URINE NEGATIVE (NEGATIVE); OCCULT BLOOD URINE NEGATIVE (NEGATIVE); PH URINE 6.5 (4.5-8.0); PROTEIN URINE 1+ (NEGATIVE)
[2018-07-29] MEDS ORDERED: ONDANSETRON HCL 4MG/2ML INJ IV ONE (18:45)
[2018-07-29] MEDS ORDERED: LACTULOSE 20G/30ML UDC PO ONE (18:45)
[2018-07-29 21:40] VITALS: BP 157/104
[2018-07-29 22:16] VITALS: BP 157/104
[2018-07-29] MEDS ORDERED: MEDICATION NOT ON FORMULARY EA (Docusate Sodium (Colace) 100 MG) PO PRN (23:30)
[2018-07-29] MEDS ORDERED: ZOLPIDEM TARTRATE 5MG TABLET PO PRN (23:45)
[2018-07-29] MEDS ORDERED: ACETAMINOPHEN 325MG TABLET PO PRN (23:45)
[2018-07-29] MEDS ORDERED: ONDANSETRON HCL 4MG/2ML INJ IV PRN (23:45)
[2018-07-29] MEDS ORDERED: HYDROCODONE/ACETAMINOPHEN 5/325MG TABLET PO PRN (23:45)
[2018-07-29] MEDS ORDERED: DIPHENHYDRAMINE 50MG/ML VIAL IV PRN (23:45)
[2018-07-29] MEDS ORDERED: LORAZEPAM 0.5MG TABLET PO PRN (23:45)
[2018-07-29] MEDS ORDERED: IPRATROPIUM/ALBUTEROL 0.5-3(2.5)MG/3ML NEB HHN PRN (23:45)
[2018-07-30] VITALS: BP 177/105
[2018-07-30] MEDS ORDERED: NON FORMULARY PATIENT HOME MED XX SCH
[2018-07-30] MEDS: CLONIDINE 0.1MG TABLET PO PRN ×3 (00:43→05:44)
[2018-07-30] MEDS: CARVEDILOL 25MG TABLET PO SCH ×3 (00:43→21:20)
[2018-07-30] MEDS: MORPHINE SULFATE 4 MG/ML CPJ (NOT FOR IM USE) IV PRN ×5 (00:44→21:25)
[2018-07-30] MEDS ORDERED: DOCUSATE SODIUM 100MG CAPSULE PO PRN (02:00)
[2018-07-30 04:00] VITALS: BP 161/95
[2018-07-30] MEDS: OMEPRAZOLE 20MG CAPSULE EXTENDED RELEASE PO SCH (05:43)
[2018-07-30 06:14] LABS: BASOPHILS % 0.6 % (0.0-2.0); EOSINOPHILS % 2.2 % (0.0-5.0); HEMATOCRIT. 35.8 % (42.0-52.0); HEMOGLOBIN. 11.9 g/dL (14.0-18.0); LYMPHOCYTES % 47.4 % (20.0-50.0); MEAN CORPUSCULAR HEMOGLOBIN 29.1 pg (28.0-32.0); MEAN CORPUSCULAR VOLUME 87.5 fL (80.0-94.0); MEAN PLATELET VOLUME 9.4 fl (7.4-10.4); MONOCYTES % 9.9 % (2.0-8.0); NEUTROPHILS % 39.9 % (40.0-76.0); PLATELET 141 x1000/uL (130-400); RED BLOOD CELL COUNT 4.09 mill/uL (4.7-6.1); RED CELL DISTRIBUTION WIDTH 14.7 % (11.6-14.6)
[2018-07-30 07:34] LABS: INR 2.5; PROTHROMBIN TIME 25.1 sec (9.6-11.0)
[2018-07-30 07:37] LABS: CHLORIDE 109 mEq/L (98-107)
[2018-07-30 08:00] VITALS: BP 113/74
[2018-07-30] MEDS ORDERED: FUROSEMIDE 40MG TABLET PO SCH (09:00)
[2018-07-30] MEDS ORDERED: MEDICATION NOT ON FORMULARY EA (Furosemide 40 MG) PO SCH (09:00)
[2018-07-30] MEDS: POTASSIUM CHLORIDE 20MEQ TABLET SR PO SCH (10:30)
[2018-07-30 12:00] VITALS: BP 130/76
[2018-07-30 16:00] VITALS: BP 137/82
[2018-07-30] MEDS: FUROSEMIDE 40MG/4ML VIAL IVP SCH (16:07)
[2018-07-30] MEDS: ENTRESTO PO SCH (17:14)
[2018-07-30] MEDS: WARFARIN SODIUM 10MG TABLET PO SCH (17:16)
[2018-07-30 20:00] VITALS: BP 183/96
[2018-07-31] VITALS: BP 152/88
[2018-07-31 04:00] VITALS: BP 157/94
[2018-07-31 05:59] LABS: INR 2.6; PROTHROMBIN TIME 25.8 sec (9.6-11.0)
[2018-07-31 06:01] LABS: BASOPHILS % 0.4 % (0.0-2.0); EOSINOPHILS % 1.8 % (0.0-5.0); HEMOGLOBIN. 12.7 g/dL (14.0-18.0); LYMPHOCYTES % 41.9 % (20.0-50.0); MEAN CORPUSCULAR HEMOGLOBIN 28.5 pg (28.0-32.0); MEAN CORPUSCULAR VOLUME 87.8 fL (80.0-94.0); MEAN PLATELET VOLUME 9.4 fl (7.4-10.4); MONOCYTES % 10.9 % (2.0-8.0); PLATELET 143 x1000/uL (130-400); RED BLOOD CELL COUNT 4.45 mill/uL (4.7-6.1); RED CELL DISTRIBUTION WIDTH 14.7 % (11.6-14.6)
[2018-07-31] MEDS: MORPHINE SULFATE 4 MG/ML CPJ (NOT FOR IM USE) IV PRN ×5 (06:09→23:46)
[2018-07-31 07:20] LABS: CHLORIDE 104 mEq/L (98-107)
[2018-07-31 07:55] VITALS: BP 145/91
[2018-07-31] MEDS: OMEPRAZOLE 20MG CAPSULE EXTENDED RELEASE PO SCH ×2 (07:59→21:38)
[2018-07-31] MEDS: CARVEDILOL 25MG TABLET PO SCH ×2 (09:20→20:23)
[2018-07-31] MEDS: POTASSIUM CHLORIDE 20MEQ TABLET SR PO SCH (09:20)
[2018-07-31] MEDS: FUROSEMIDE 40MG/4ML VIAL IVP SCH (09:21)
[2018-07-31] MEDS: ENTRESTO PO SCH ×2 (09:22→17:07)
[2018-07-31 11:43] VITALS: BP 151/102
[2018-07-31] MEDS: CLONIDINE 0.1MG TABLET PO PRN (11:50)
[2018-07-31] MEDS ORDERED: MAGNESIUM CITRATE 300ML SOLUTION PO NR (12:30)
[2018-07-31] MEDS: METOCLOPRAMIDE HCL 10MG/2ML VIAL IV SCH ×3 (12:49→23:41)
[2018-07-31 15:41] VITALS: BP 140/84
[2018-07-31] MEDS: WARFARIN SODIUM 10MG TABLET PO SCH (17:07)
[2018-07-31 20:00] VITALS: BP 139/88
[2018-07-31] MEDS ORDERED: WARF7.5T48 PO (21:56)
[2018-07-31] MEDS ORDERED: WARF7.5T48 MT (21:56)
[2018-07-31] MEDS ORDERED: WARF10TA44 PO (21:56)
[2018-08-01] VITALS: BP 143/83
[2018-08-01 04:00] VITALS: BP 120/90
[2018-08-01] MEDS: MORPHINE SULFATE 4 MG/ML CPJ (NOT FOR IM USE) IV PRN ×2 (05:29→12:04)
[2018-08-01] MEDS: METOCLOPRAMIDE HCL 10MG/2ML VIAL IV SCH ×2 (05:29→12:04)
[2018-08-01] MEDS: OMEPRAZOLE 20MG CAPSULE EXTENDED RELEASE PO SCH (06:17)
[2018-08-01 06:19] LABS: INR 2.8; PROTHROMBIN TIME 27.7 sec (9.6-11.0)
[2018-08-01 06:34] LABS: CHLORIDE 102 mEq/L (98-107)
[2018-08-01 06:36] LABS: BASOPHILS % 0.3 % (0.0-2.0); EOSINOPHILS % 1.7 % (0.0-5.0); HEMOGLOBIN. 12.8 g/dL (14.0-18.0); LYMPHOCYTES % 47.7 % (20.0-50.0); MEAN CORPUSCULAR HEMOGLOBIN 28.7 pg (28.0-32.0); MEAN CORPUSCULAR VOLUME 87.5 fL (80.0-94.0); MEAN PLATELET VOLUME 8.6 fl (7.4-10.4); MONOCYTES % 11.1 % (2.0-8.0); NEUTROPHILS % 39.2 % (40.0-76.0); PLATELET 139 x1000/uL (130-400); RED BLOOD CELL COUNT 4.46 mill/uL (4.7-6.1); RED CELL DISTRIBUTION WIDTH 14.8 % (11.6-14.6)
[2018-08-01 08:00] VITALS: BP 124/81
[2018-08-01] MEDS: FUROSEMIDE 40MG/4ML VIAL IVP SCH (09:24)
[2018-08-01] MEDS: CARVEDILOL 25MG TABLET PO SCH (09:25)
[2018-08-01] MEDS: ENTRESTO PO SCH (09:25)
[2018-08-01] MEDS: POTASSIUM CHLORIDE 20MEQ TABLET SR PO SCH (09:25)
[2018-08-01 11:57] VITALS: BP 130/92
[2018-08-01 13:37] VITALS: BP 130/92
[2018-08-03] MEDS ORDERED: WARFARIN SODIUM 7.5MG TABLET PO SCH (18:00)
== END 2018-08-01 14:30 | disposition home or self-care (01) | DRG 392 ==
LOC: ER 13:00 → 5WST 18:39 → ENRESERV 21:04
PROVIDERS: ADMIT Family Medicine Adult Medicine; ATTEND Family Medicine Adult Medicine
DX: K59.00 Constipation, unspecified (principal); Z68.43 Body mass index [BMI] 50.0-59.9, adult; I42.0 Dilated cardiomyopathy; I11.0 Hypertensive heart disease with heart failure; I50.9 Heart failure, unspecified; I25.10 Atherosclerotic heart disease of native coronary artery without angina pectoris; Z96.659 Presence of unspecified artificial knee joint; E66.9 Obesity, unspecified; K43.9 Ventral hernia without obstruction or gangrene; K66.0 Peritoneal adhesions (postprocedural) (postinfection); Z79.01 Long term (current) use of anticoagulants; Z82.49 Family history of ischemic heart disease and other diseases of the circulatory system; Z86.711 Personal history of pulmonary embolism; Z86.718 Personal history of other venous thrombosis and embolism; Z95.1 Presence of aortocoronary bypass graft; Z95.2 Presence of prosthetic heart valve; Z90.49 Acquired absence of other specified parts of digestive tract; Z95.810 Presence of automatic (implantable) cardiac defibrillator; Z98.84 Bariatric surgery status; Z95.828 Presence of other vascular implants and grafts; Z88.8 Allergy status to other drugs, medicaments and biological substances; Z91.013 Allergy to seafood; Z88.0 Allergy status to penicillin; Z79.899 Other long term (current) drug therapy
CPT/HCPCS: 36415; 71045; 74176; 80048; 83735; 83880; 84484; 93005; 93970; 96374; 99285; J1940; J2270; J2405; J2765; J7030

== ENCOUNTER 2019-01-05 15:05 | Inpatient (IN) | payer MEDICARE, MEDICAID ==
[~2019-01-05] VITALS: Ht 191.8 cm; Wt 195.1 kg
[~2019-01-05 15:05] MED LIST changes: -OMEP20CA10 PO; +OMEP20CA5 PO; -WARF10TA21 PO; +WARF10TA44 PO; +WARF7.5T48 PO
[2019-01-05] MEDS ORDERED: MORPHINE SULFATE 4 MG/ML CPJ (NOT FOR IM USE) IV STA (15:59)
[2019-01-05] MEDS ORDERED: ONDANSETRON HCL 4MG/2ML INJ IV STA (15:59)
[2019-01-05] MEDS ORDERED: NITROGLYCERIN OINT 1GM/INCH UDPKT TD ONE (16:00)
[2019-01-05] MEDS ORDERED: FUROSEMIDE 40MG/4ML VIAL IV ONE (16:00)
[2019-01-05] MEDS ORDERED: ASPIRIN 81MG TABLET PO ONE (16:00)
[2019-01-05 17:00] LABS: HEMATOCRIT. 36.5 % (42.0-52.0); HEMOGLOBIN. 11.9 g/dL (14.0-18.0); MEAN CORPUSCULAR HEMOGLOBIN 28.4 pg (28.0-32.0); MEAN PLATELET VOLUME 9.9 fl (7.4-10.4); PLATELET 108 x1000/uL (130-400); RED CELL DISTRIBUTION WIDTH 15.8 % (11.6-14.6)
[2019-01-05 17:02] LABS: CHLORIDE 109 mEq/L (98-107)
[2019-01-05 17:03] LABS: INR 1.9; PROTHROMBIN TIME 19.4 sec (9.6-11.0)
[2019-01-05] MEDS ORDERED: WARFARIN SODIUM 10MG TABLET PO ONE (17:30)
[2019-01-05 17:49] LABS: PLATELET ESTIMATE DECREASED
[2019-01-05] MEDS ORDERED: MORPHINE SULFATE 4 MG/ML CPJ (NOT FOR IM USE) IV ONE ×2 (20:15→20:45)
[2019-01-05] MEDS ORDERED: ONDANSETRON HCL 4MG/2ML INJ IV ONE (20:45)
[2019-01-05] MEDS ORDERED: CLONIDINE 0.1MG TABLET PO PRN (22:45)
[2019-01-05] MEDS ORDERED: DIPHENHYDRAMINE 50MG/ML VIAL IV PRN (22:45)
[2019-01-05] MEDS ORDERED: LORAZEPAM 0.5MG TABLET PO PRN (22:45)
[2019-01-05] MEDS ORDERED: DOCUSATE SODIUM 100MG CAPSULE PO PRN (22:45)
[2019-01-05] MEDS ORDERED: IPRATROPIUM/ALBUTEROL 0.5-3(2.5)MG/3ML NEB HHN PRN (22:45)
[2019-01-05] MEDS ORDERED: HYDROCODONE/ACETAMINOPHEN 5/325MG TABLET PO PRN (22:45)
[2019-01-05] MEDS ORDERED: GUAIFENESIN 200MG/10ML SUGAR FREE UDC PO PRN (22:45)
[2019-01-05] MEDS ORDERED: MAGNESIUM/ALUMINUM HYDROXIDE/SIMETHICONE 30ML UDC PO PRN (22:45)
[2019-01-05] MEDS ORDERED: ACETAMINOPHEN 650MG SUPP PR PRN (22:45)
[2019-01-05] MEDS ORDERED: ONDANSETRON HCL 4MG/2ML INJ IV PRN (22:45)
[2019-01-05] MEDS ORDERED: ACETAMINOPHEN 325MG TABLET PO PRN (22:45)
[2019-01-05 23:21] LABS: CREATINE KINASE 250 IU/L (39-308)
[2019-01-06 02:00] VITALS: BP 180/113
[2019-01-06 04:00] VITALS: BP 155/87
[2019-01-06] MEDS: MORPHINE SULFATE 2 MG/ML CPJ (NOT FOR IM USE) IV PRN ×5 (04:33→22:44)
[2019-01-06 06:32] LABS: BASOPHILS % 0.7 % (0.0-2.0); EOSINOPHILS % 2.4 % (0.0-5.0); HEMATOCRIT. 33.9 % (42.0-52.0); HEMOGLOBIN. 11.3 g/dL (14.0-18.0); LYMPHOCYTES % 42.4 % (20.0-50.0); MEAN CORPUSCULAR HEMOGLOBIN 28.7 pg (28.0-32.0); MEAN CORPUSCULAR VOLUME 86.7 fL (80.0-94.0); MEAN PLATELET VOLUME 8.7 fl (7.4-10.4); MONOCYTES % 13.2 % (2.0-8.0); NEUTROPHILS % 41.3 % (40.0-76.0); PLATELET 200 x1000/uL (130-400); RED BLOOD CELL COUNT 3.92 mill/uL (4.7-6.1); RED CELL DISTRIBUTION WIDTH 15.3 % (11.6-14.6)
[2019-01-06 06:34] LABS: PROTHROMBIN TIME 20.1 sec (9.6-11.0)
[2019-01-06] MEDS: OMEPRAZOLE 20MG CAPSULE EXTENDED RELEASE PO SCH (06:42)
[2019-01-06 06:47] LABS: CHLORIDE 108 mEq/L (98-107)
[2019-01-06 07:01] LABS: LDL CHOLESTEROL 73 mg/dL (5-100); PHOSPHORUS 3.6 mg/dL (2.5-4.9)
[2019-01-06 07:02] LABS: HDL CHOLESTEROL 35 mg/dL (40-59)
[2019-01-06 08:08] VITALS: BP 144/99
[2019-01-06] MEDS: POTASSIUM CHLORIDE 20MEQ TABLET SR PO SCH (08:23)
[2019-01-06] MEDS: FUROSEMIDE 40MG/4ML VIAL IV SCH ×2 (08:23→16:56)
[2019-01-06] MEDS ORDERED: WARFARIN SODIUM 10MG TABLET PO SCH (09:00)
[2019-01-06 12:08] VITALS: BP 150/103
[2019-01-06 12:10] LABS: CLARITY URINE CLEAR (CLEAR); COLOR URINE YELLOW (YELLOW); KETONES URINE NEGATIVE (NEGATIVE); LEUKOCYTE ESTERASE URINE NEGATIVE (NEGATIVE); NITRITE URINE NEGATIVE (NEGATIVE); OCCULT BLOOD URINE NEGATIVE (NEGATIVE); PH URINE 5.5 (4.5-8.0); PROTEIN URINE NEGATIVE (NEGATIVE); SPECIFIC GRAVITY URINE 1.011 (1.005-1.030)
[2019-01-06 16:00] VITALS: BP 115/90
[2019-01-06] MEDS: WARFARIN SODIUM 10MG TABLET PO SCH (18:03)
[2019-01-06 20:45] VITALS: BP 143/99
[2019-01-06] MEDS: CARVEDILOL 12.5MG TABLET PO SCH (21:55)
[2019-01-07 00:18] VITALS: BP 145/96
[2019-01-07 04:00] VITALS: BP 153/104
[2019-01-07] MEDS: MORPHINE SULFATE 2 MG/ML CPJ (NOT FOR IM USE) IV PRN ×5 (04:42→23:25)
[2019-01-07] MEDS: OMEPRAZOLE 20MG CAPSULE EXTENDED RELEASE PO SCH (06:33)
[2019-01-07 07:03] LABS: BASOPHILS % 0.6 % (0.0-2.0); EOSINOPHILS % 2.2 % (0.0-5.0); HEMATOCRIT. 36.4 % (42.0-52.0); HEMOGLOBIN. 12.2 g/dL (14.0-18.0); LYMPHOCYTES % 25.3 % (20.0-50.0); MEAN CORPUSCULAR VOLUME 86.6 fL (80.0-94.0); MEAN PLATELET VOLUME 8.5 fl (7.4-10.4); MONOCYTES % 9.7 % (2.0-8.0); NEUTROPHILS % 62.2 % (40.0-76.0); PLATELET 204 x1000/uL (130-400); RED BLOOD CELL COUNT 4.21 mill/uL (4.7-6.1); RED CELL DISTRIBUTION WIDTH 15.7 % (11.6-14.6)
[2019-01-07 07:35] LABS: CHLORIDE 105 mEq/L (98-107)
[2019-01-07 08:00] VITALS: BP 137/89
[2019-01-07] MEDS: POTASSIUM CHLORIDE 20MEQ TABLET SR PO SCH (09:17)
[2019-01-07] MEDS: FUROSEMIDE 40MG/4ML VIAL IV SCH (09:18)
[2019-01-07] MEDS: CARVEDILOL 12.5MG TABLET PO SCH ×2 (09:18→21:17)
[2019-01-07] MEDS ORDERED: MAGNESIUM 2 G PREMIX 50 ML IV SCH (10:00)
[2019-01-07 11:12] LABS: INR 2.2; PROTHROMBIN TIME 22.1 sec (9.6-11.0)
[2019-01-07 11:32] VITALS: BP 152/99
[2019-01-07] MEDS ORDERED: POTASSIUM CHLORIDE 20MEQ TABLET SR PO NR (13:30)
[2019-01-07] MEDS ORDERED: IPRATROPIUM/ALBUTEROL 0.5-3(2.5)MG/3ML NEB HHN PRN (13:45)
[2019-01-07] MEDS ORDERED: MAGNESIUM/ALUMINUM HYDROXIDE/SIMETHICONE 30ML UDC PO PRN (13:45)
[2019-01-07] MEDS ORDERED: GUAIFENESIN 200MG/10ML SUGAR FREE UDC PO PRN (13:45)
[2019-01-07] MEDS ORDERED: DIPHENHYDRAMINE 50MG/ML VIAL IV PRN (13:45)
[2019-01-07] MEDS ORDERED: LORAZEPAM 0.5MG TABLET PO PRN (13:45)
[2019-01-07] MEDS ORDERED: ACETAMINOPHEN 650MG SUPP PR PRN (13:45)
[2019-01-07] MEDS ORDERED: HYDROCODONE/ACETAMINOPHEN 5/325MG TABLET PO PRN (13:45)
[2019-01-07] MEDS ORDERED: ONDANSETRON HCL 4MG/2ML INJ IV PRN (13:45)
[2019-01-07] MEDS ORDERED: CLONIDINE 0.1MG TABLET PO PRN (13:45)
[2019-01-07] MEDS ORDERED: DOCUSATE SODIUM 100MG CAPSULE PO PRN (13:45)
[2019-01-07] MEDS ORDERED: ACETAMINOPHEN 325MG TABLET PO PRN (13:45)
[2019-01-07 16:30] VITALS: BP 157/91
[2019-01-07] MEDS: FUROSEMIDE 100MG/10ML VIAL IV SCH (18:11)
[2019-01-07] MEDS: WARFARIN SODIUM 10MG TABLET PO SCH (18:16)
[2019-01-07 20:00] VITALS: BP 139/87
[2019-01-08 00:21] VITALS: BP 138/97
[2019-01-08 04:00] VITALS: BP 141/92
[2019-01-08] MEDS: MORPHINE SULFATE 4 MG/ML CPJ (NOT FOR IM USE) IV PRN ×5 (04:55→23:51)
[2019-01-08 06:10] LABS: BASOPHILS % 0.7 % (0.0-2.0); EOSINOPHILS % 2.8 % (0.0-5.0); HEMATOCRIT. 36.9 % (42.0-52.0); HEMOGLOBIN. 12.2 g/dL (14.0-18.0); LYMPHOCYTES % 38.4 % (20.0-50.0); MEAN CORPUSCULAR HEMOGLOBIN 28.5 pg (28.0-32.0); MEAN CORPUSCULAR VOLUME 86.2 fL (80.0-94.0); MEAN PLATELET VOLUME 8.9 fl (7.4-10.4); MONOCYTES % 13.2 % (2.0-8.0); NEUTROPHILS % 44.9 % (40.0-76.0); PLATELET 188 x1000/uL (130-400); RED BLOOD CELL COUNT 4.28 mill/uL (4.7-6.1); RED CELL DISTRIBUTION WIDTH 15.2 % (11.6-14.6)
[2019-01-08 06:14] LABS: CHLORIDE 103 mEq/L (98-107); INR 2.4; PROTHROMBIN TIME 23.4 sec (9.6-11.0)
[2019-01-08] MEDS: OMEPRAZOLE 20MG CAPSULE EXTENDED RELEASE PO SCH (06:26)
[2019-01-08] MEDS: FUROSEMIDE 100MG/10ML VIAL IV SCH ×2 (06:26→17:32)
[2019-01-08] MEDS ORDERED: MAGNESIUM 2 G PREMIX 50 ML IV NR (08:00)
[2019-01-08 08:11] VITALS: BP 133/94
[2019-01-08] MEDS: POTASSIUM CHLORIDE 20MEQ TABLET SR PO SCH (09:46)
[2019-01-08] MEDS: CARVEDILOL 12.5MG TABLET PO SCH ×2 (09:47→22:18)
[2019-01-08 12:02] VITALS: BP 130/87
[2019-01-08 16:02] VITALS: BP 115/91
[2019-01-08] MEDS: WARFARIN SODIUM 10MG TABLET PO SCH (17:32)
[2019-01-08 20:00] VITALS: BP 114/83
[2019-01-09] VITALS: BP 136/102
[2019-01-09 04:00] VITALS: BP 142/88
[2019-01-09] MEDS: MORPHINE SULFATE 4 MG/ML CPJ (NOT FOR IM USE) IV PRN ×5 (04:49→23:00)
[2019-01-09] MEDS: OMEPRAZOLE 20MG CAPSULE EXTENDED RELEASE PO SCH (06:37)
[2019-01-09] MEDS: FUROSEMIDE 100MG/10ML VIAL IV SCH ×2 (06:37→17:13)
[2019-01-09 08:00] VITALS: BP 136/90
[2019-01-09] MEDS: CARVEDILOL 12.5MG TABLET PO SCH ×2 (08:51→20:44)
[2019-01-09] MEDS: POTASSIUM CHLORIDE 20MEQ TABLET SR PO SCH (08:51)
[2019-01-09 10:35] LABS: BASOPHILS % 0.6 % (0.0-2.0); EOSINOPHILS % 2.1 % (0.0-5.0); HEMATOCRIT. 38.7 % (42.0-52.0); HEMOGLOBIN. 12.9 g/dL (14.0-18.0); LYMPHOCYTES % 36.1 % (20.0-50.0); MEAN CORPUSCULAR HEMOGLOBIN 28.5 pg (28.0-32.0); MEAN CORPUSCULAR VOLUME 85.4 fL (80.0-94.0); MEAN PLATELET VOLUME 8.7 fl (7.4-10.4); MONOCYTES % 12.5 % (2.0-8.0); NEUTROPHILS % 48.7 % (40.0-76.0); PLATELET 215 x1000/uL (130-400); RED BLOOD CELL COUNT 4.52 mill/uL (4.7-6.1); RED CELL DISTRIBUTION WIDTH 15.7 % (11.6-14.6)
[2019-01-09 10:43] LABS: CHLORIDE 101 mEq/L (98-107)
[2019-01-09 10:49] LABS: INR 1.9; PROTHROMBIN TIME 19.2 sec (9.6-11.0)
[2019-01-09] MEDS: LIDOCAINE 5% PATCH TOP SCH (12:00)
[2019-01-09 12:30] VITALS: BP 137/94
[2019-01-09] MEDS: ENOXAPARIN 150MG/ML SYR SUBCUT SCH (14:00)
[2019-01-09 17:00] VITALS: BP 110/64
[2019-01-09] MEDS: WARFARIN SODIUM 10MG TABLET PO SCH (17:13)
[2019-01-09 20:00] VITALS: BP 120/71
[2019-01-09] MEDS: ENTRESTO PO SCH (20:44)
[2019-01-10] VITALS: BP 115/78
[2019-01-10] MEDS: ENOXAPARIN 150MG/ML SYR SUBCUT SCH ×2 (01:09→01:16)
[2019-01-10 04:00] VITALS: BP 118/60
[2019-01-10] MEDS: MORPHINE SULFATE 4 MG/ML CPJ (NOT FOR IM USE) IV PRN ×3 (04:11→13:39)
[2019-01-10] MEDS: FUROSEMIDE 100MG/10ML VIAL IV SCH (06:32)
[2019-01-10] MEDS: OMEPRAZOLE 20MG CAPSULE EXTENDED RELEASE PO SCH (06:32)
[2019-01-10 07:10] LABS: BASOPHILS % 0.5 % (0.0-2.0); EOSINOPHILS % 1.9 % (0.0-5.0); HEMATOCRIT. 38.6 % (42.0-52.0); HEMOGLOBIN. 12.7 g/dL (14.0-18.0); LYMPHOCYTES % 35.4 % (20.0-50.0); MEAN CORPUSCULAR HEMOGLOBIN 28.2 pg (28.0-32.0); MEAN CORPUSCULAR VOLUME 85.4 fL (80.0-94.0); MEAN PLATELET VOLUME 8.7 fl (7.4-10.4); MONOCYTES % 13.8 % (2.0-8.0); NEUTROPHILS % 48.4 % (40.0-76.0); PLATELET 230 x1000/uL (130-400); RED BLOOD CELL COUNT 4.52 mill/uL (4.7-6.1); RED CELL DISTRIBUTION WIDTH 15.6 % (11.6-14.6)
[2019-01-10 07:15] LABS: INR 2.2
[2019-01-10 08:00] VITALS: BP 106/71
[2019-01-10 08:32] LABS: CHLORIDE 102 mEq/L (98-107)
[2019-01-10] MEDS: POTASSIUM CHLORIDE 20MEQ TABLET SR PO SCH (08:38)
[2019-01-10] MEDS: CARVEDILOL 12.5MG TABLET PO SCH (08:38)
[2019-01-10] MEDS: LIDOCAINE 5% PATCH TOP SCH (08:39)
[2019-01-10] MEDS: ENTRESTO PO SCH (08:39)
[2019-01-10 12:00] VITALS: BP 114/73
[2019-01-10 14:36] VITALS: BP 114/73
[2019-01-11] MEDS ORDERED: WARFARIN SODIUM 7.5MG TABLET PO SCH ×2 (09:00→17:00)
== END 2019-01-10 16:00 | disposition home or self-care (01) | DRG 291 ==
LOC: ER 15:05 → 6WST 17:41 → ENRESERV 01-06 00:50
PROVIDERS: ADMIT Family Medicine Adult Medicine; ATTEND Family Medicine Adult Medicine
DX: I11.0 Hypertensive heart disease with heart failure (principal); J96.00 Acute respiratory failure, unspecified whether with hypoxia or hypercapnia; J98.11 Atelectasis; D68.59 Other primary thrombophilia; I47.1 Supraventricular tachycardia; Z68.43 Body mass index [BMI] 50.0-59.9, adult; I50.43 Acute on chronic combined systolic (congestive) and diastolic (congestive) heart failure; I42.0 Dilated cardiomyopathy; E66.01 Morbid (severe) obesity due to excess calories; E03.9 Hypothyroidism, unspecified; G47.33 Obstructive sleep apnea (adult) (pediatric); I25.10 Atherosclerotic heart disease of native coronary artery without angina pectoris; I25.5 Ischemic cardiomyopathy; G89.29 Other chronic pain; J44.9 Chronic obstructive pulmonary disease, unspecified; K21.9 Gastro-esophageal reflux disease without esophagitis; M54.42 Lumbago with sciatica, left side; Z96.652 Presence of left artificial knee joint; E83.42 Hypomagnesemia; Z95.2 Presence of prosthetic heart valve; Z95.810 Presence of automatic (implantable) cardiac defibrillator; Z86.718 Personal history of other venous thrombosis and embolism; Z79.01 Long term (current) use of anticoagulants; Z82.49 Family history of ischemic heart disease and other diseases of the circulatory system; Z86.711 Personal history of pulmonary embolism; Z95.1 Presence of aortocoronary bypass graft; Z95.828 Presence of other vascular implants and grafts; Z98.84 Bariatric surgery status; Z71.3 Dietary counseling and surveillance
CPT/HCPCS: 36415; 71045; 78580; 80048; 80061; 81003; 82550; 83735; 83880; 84100; 84443; 84484; 84550; 85379; 93005; 93308; 93970; 97116; 97162; 97535; 99285; C1893; J1650; J1940; J2270; J2405; J3475